=== PATIENT | male | born 1940 | race Caucasian/White ===

== ENCOUNTER 2017-07-01 11:49 | Inpatient (IN) | payer OTHER ==
[~2017-07-01] VITALS: Ht 167.6 cm; Wt 94.3 kg
[~2017-07-01 11:49] MED LIST: KEFLEX500 M1 PO
--- NOTE | 2017-07-01 12:09 | ED INFLUENZA/URI COMPLAINT ---
History of Present Illness General Chief Complaint: Upper Respiratory Sx/Fever Stated Complaint: ?FLU Source: patient Exam Limitations: no limitations Allergies Coded Allergies: No Known Allergies (12/22/15) Triage Note: PT TO ED WITH C/O SOB, COUGH, CONGESTION SINCE CARLA "WORSE THIS WEEK WITH THE COLD WEATHER, CAN'T SLEEP". Triage Nurses Notes Reviewed? yes Onset: Gradual Duration: week(s): Timing: recent history Severity: moderate HPI: 77yo male with hx of COPD, sleep apnea on CPAP at night, a fib on xarelto, DM, CAD s/p cardiac stents presents to ED complaining of dyspnea times one months. Patient states that symptoms began shortly after [place] and he attributed dyspnea to very cold weather. Patient states dyspnea is worse with exertion and associated with hyperventilation. Patient states that over the past 2 days dyspnea has been worsening prompting him to report to the emergency department. Patient states he has had cough intermittently productive of clear/white sputum. Patient has no history of similar dyspnea, he states he has never been admitted to the hospital for COPD. Patient also feeling generalized abdominal discomfort which he attributes to anxiety, he denies abdominal pain. The patient denies fevers, chills, chest pain, syncope. (Cristina HATCH,Philomena Castañeda) Vital Signs & Intake/Output Vital Signs & Intake/Output Vital Signs Date Time Temp Pulse Resp B/P B/P Pulse O2 O2 Flow FiO2 Mean Ox Delivery Rate 07/01 1458 97.9 78 26 179/87 94 Room Air 07/01 1312 97.7 77 16 189/88 94 Nasal 3.0L Cannula 07/01 1227 Room Air 07/01 1158 96.8 90 24 135/79 88 Room Air Room Air Reconcile Medications Furosemide 20 MG TABLET 1 TAB PO DAILY DIURETIC (Reported) Losartan Potassium (Cozaar) 50 MG TABLET 1 TAB PO DAILY BP (Reported) Metformin HCl 500 MG TABLET 1 TAB PO DAILY DM (Reported) Metoprolol Succinate 50 MG TAB.ER.24H 1 TAB PO BID HEART/BP (Reported) Rivaroxaban (Xarelto) 20 MG TABLET 1 TAB PO QPM BLOOD THINNER (Reported) with food Simvastatin (Simvastatin*) 80 MG TABLET 1 TAB PO DAILY CHOLESTEROL (Reported) (Melva CARDONA,Soham Amin) Past History Travel History Traveled to [place] past 21 day No Medical History Any Pertinent Medical History? see below for history Neurological: NONE EENT: NONE Cardiovascular: HYPERTENSION ATRIAL FIBRILLATION CARDIAC STENTS Respiratory: COPD, obstructive sleep apnea Gastrointestinal: NONE Hepatic: NONE Renal: NONE Musculoskeletal: NONE Psychiatric: NONE Endocrine: diabetes Blood Disorders: NONE Cancer(s): prostate cancer HOME PARAPROFESSIONAL/Reproductive: NONE Surgical History Surgical History: non-contributory Psychosocial History What is your primary language Maltese Tobacco Use: Quit >30 days ago ETOH Use: denies use Illicit Drug Use: denies illicit drug use Family History Hx Contributory? No (Philomena Hui) Review of Systems Review of Systems Constitutional: Reports: no symptoms. EENTM: Reports: no symptoms. Respiratory: Reports: see HPI. Cardiovascular: Reports: no symptoms. GI: Reports: see HPI. Genitourinary: Reports: no symptoms. Musculoskeletal: Reports: no symptoms. Skin: Reports: no symptoms. Neurological/Psychological: Reports: no symptoms. Hematologic/Endocrine: Reports: no symptoms. Immunologic/Allergic: Reports: no symptoms. All Other Systems: Reviewed and Negative (Philomena Hui) Physical Exam Physical Exam General Appearance: well developed/nourished, no apparent distress, alert, awake Head: atraumatic, normal appearance Eyes: Bilateral: normal appearance. Ears, Nose, Throat: normal ENT inspection, moist mucous membrane, hearing grossly normal, Tympanic normal Neck: normal inspection, supple, full range of motion Respiratory: normal breath sounds, no respiratory distress, lungs clear, slightly diminished breath sounds bilateral posterior lung daniel Cardiovascular: irregularly irregular Peripheral Pulses: 2+ radial (R), 2+ radial (L) Gastrointestinal: normal bowel sounds, soft, mild distension with mild periumbilical tenderness Back: normal inspection, normal range of motion Extremities: normal inspection, normal range of motion, mild nonpitting pedal edema bilaterally Neurologic/Psych: awake, alert, oriented x 3, normal gait, normal mood/affect Skin: intact, normal color, warm/dry Core Measures Sepsis Present: No Sepsis Focused Exam Completed? No (Philomena Hui) Progress Differential Diagnosis: influenza, pneumonia, CHF, COPD, bronchitis, ACS Plan of Care: Orders Procedure Date/time Status Heart Healthy Diet 07/01 D Active Patient Data 07/01 1519 Active ED Holding Orders 07/01 1517 Active Admit to inpatient 07/01 1517 Active Vital Signs 07/01 1517 Active Code Status 07/01 1517 Active Add-on Test (ER Only) 07/01 1438 Active RAPID VIRAL INFLUENZA A 07/01 1436 Complete B-TYPE NATRIURETIC PEP (BNP) 07/01 1321 Complete TROPONIN LEVEL 07/01 1204 Complete COMPREHENSIVE METABOLIC PANEL 07/01 1204 Complete CBC WITHOUT DIFFERENTIAL 07/01 1204 Complete EKG 07/01 1204 Active Laboratory Tests 07/01/17 1321: Anion Gap 15, Estimated GFR > 60, BUN/Creatinine Ratio 10.0, Glucose 129 H, Calcium 9.1, Total Bilirubin 1.2, AST 22, ALT 37, Alkaline Phosphatase 101, Troponin I < 0.01, Rbg-W-Xyfvguvdfwj Pept 4480 H, Total Protein 7.4, Albumin 4.1, Globulin 3.3, Albumin/Globulin Ratio 1.2, CBC w Diff NO MAN DIFF REQ, RBC 5.11, MCV 88.3, MCH 27.6, RDW 15.7 H, MPV 8.8, Gran % 78.3 H, Lymphocytes % 9.9 L, Monocytes % 9.5 H, Eosinophils % 1.9, Basophils % 0.4, Absolute Granulocytes 6.6 H, Absolute Lymphocytes 0.8 L, Absolute Monocytes 0.8 H, Absolute Eosinophils 0.2, Absolute Basophils 0, PUBS MCHC 31.3 L 07/01/17 1225: Fpv-S-Xpvpnzhwhdy Pept Cancelled Microbiology 07/01 1510 NASOPHARYN: Influenza Virus A & B Rapid Smear - COMP Chest x-ray shows small left-sided pleural effusion which appears new compared to old x-ray studies. Patient's BNP is acutely elevated compared to prior labs. Patient also with hypoxia and dyspnea on exertion without supplemental oxygen. O2 sat 91 while walking without oxygenation and patient symptomatic with dyspnea even during rest. This patient requires IV diuresis, cardiology consult, repeat EKGs and troponins. The patient was discussed with Dr. Frye. Discussed this patient with hospitalist, Dr. Garcia, regarding telemetry admission. Diagnostic Imaging: Viewed by Me: Radiology Read. Discussed w/RAD: Radiology Read. CXR Impression: PATIENT: CLARISSA FERMIN PRESENT AGE: 77 PATIENT ACCOUNT NO: [id number] : 38 LOCATION: [facility] [place] ORDERING PHYSICIAN: Maik HATCH SERVICE DATE: 07/01/17 EXAM TYPE: RAD - XRY-CHEST XRAY, TWO VIEWS EXAMINATION: XR CHEST CLINICAL INFORMATION: Shortness of breath, cough. COMPARISON: Chest done on 06/24/2016. TECHNIQUE: Two views of the chest were obtained. FINDINGS: Interval development of small left-sided pleural effusion and nonspecific left lower lobar airspace disease present which may represent compressive atelectasis, infiltrate or combination thereof. No other significant change since 06/24/2016. IMPRESSION: Small left-sided pleural effusion and nonspecific left lower lobar airspace disease, appears new since . No other significant change. DICTATED BY: Inez Cunningham MD DATE/TIME DICTATED:07/01/171256 MAMMALOGY TEACHER:GUILLERMINA DATE/TIME TRANSCRIBED:1256 CONFIDENTIAL, DO NOT COPY WITHOUT APPROPRIATE AUTHORIZATION. < Electronically signed in Other Vendor System> SIGNED BY: Inez Cunningham MD 07/01/17 1311 Initial ED EKG: atrial fibrillation rate 83, nonspecific ST changes Prior EKG: unchanged (09/01/12) (Philomena Hui) Departure Departure Disposition: STILL A PATIENT Condition: Stable Clinical Impression Primary Impression: CHF exacerbation Qualifiers: Congestive heart failure type: unspecified congestive heart failure type Qualified Code: I50.9 - Heart failure, unspecified Secondary Impressions: Dyspnea Qualifiers: Dyspnea type: dyspnea on exertion Qualified Code: R06.09 - Other forms of dyspnea Pleural effusion Referrals: Micheline Ramos MD (PCP/Family) Departure Forms: Customer Survey General Discharge Information Admission Note Spoke With: Henry Garcia MD Documentation of Exam: Documentation of any treatments & extenuating circumstances including Concerns Regarding Discharge (functional status, medication knowledge or non-compliance, living conditions, etc.) that warrant an admission rather than observation: [ Acute CHF exacerbation requiring IV Lasix, cardiology consult, trend troponins, repeat EKGs, telemetry monitoring, supplemental oxygen, premature discharge would be medically unsafe] (Philomena Hui) PA/WELL FLOW OPERATOR Co-Sign Statement Statement: ED Attending supervision documentation- [X] I saw and evaluated the patient. I have also reviewed all the pertinent lab results and diagnostic results. I agree with the findings and the plan of care as documented in the PA's/WELL FLOW OPERATOR's documentation. [X] I have reviewed the ED Record and agree with the PA's/WELL FLOW OPERATOR's documentation. [] Additions or exceptions (if any) to the PAs/WELL FLOW OPERATOR's note and plan are summarized below: [Patient is having increasing shortness of breath, dyspnea on exertion and orthopnea. Productive cough with white sputum. Patient to be admitted for fluid overload very patient will need IV diuresis. Cardiology consultation.] (Melva CARDONA,Soham Amin) [X] I saw and evaluated the patient. I have also reviewed all the pertinent lab results and diagnostic results. I agree with the findings and the plan of care as documented in the PA's/WELL FLOW OPERATOR's documentation. [X] I have reviewed the ED Record and agree with the PA's/WELL FLOW OPERATOR's documentation. [] Additions or exceptions (if any) to the PAs/WELL FLOW OPERATOR's note and plan are summarized below: [Patient is having increasing shortness of breath, dyspnea on exertion and orthopnea. Productive cough with white sputum. Patient to be admitted for fluid overload very patient will need IV diuresis. Cardiology consultation.] (Melva CARDONA,Soham Amin)
--- NOTE | 2017-07-01 13:11 | RADIOLOGY REPORT ---
EXAMINATION: XR CHEST CLINICAL INFORMATION: Shortness of breath, cough. COMPARISON: Chest done on 06/24/2016. TECHNIQUE: Two views of the chest were obtained. FINDINGS: Interval development of small left-sided pleural effusion and nonspecific left lower lobar airspace disease present which may represent compressive atelectasis, infiltrate or combination thereof. No other significant change since 06/24/2016. IMPRESSION: Small left-sided pleural effusion and nonspecific left lower lobar airspace disease, appears new since 06/24/2016. No other significant change.
[2017-07-01 13:33] LABS: ABSOLUTE BASOPHIL COUNT 0 /CUMM (0.0-0.2); ABSOLUTE EOSINOPHIL COUNT 0.2 /CUMM (0.0-0.7); ABSOLUTE GRANULOCYTE CT 6.6 /CUMM (1.4-6.5); ABSOLUTE LYMPH COUNT 0.8 /CUMM (1.2-3.4); ABSOLUTE MONOCYTE COUNT 0.8 /CUMM (0.10-0.60); BASOPHIL % 0.4 % (0.0-2.0); EOSINOPHIL % 1.9 % (0-5); GRANULOCYTE % 78.3 % (42.2-75.2); HEMATOCRIT 45.1 % (42-52); MEAN CORPUSCULAR HGB 27.6 PG (27.0-31.0); MEAN CORPUSCULAR HGB CONC 31.3 G/DL (33.0-37.0); MEAN CORPUSCULAR VOLUME 88.3 FL (80.0-94.0); MEAN PLATELET VOLUME 8.8 FL (7.4-10.4); PLATELET COUNT 223 /CUMM (130-400); RBC DISTRIBUTION WIDTH 15.7 % (11.5-14.5); RED BLOOD CELL CT 5.11 /CUMM (4.70-6.10); WHITE BLOOD CELL COUNT 8.4 /CUMM (4.8-10.8)
[2017-07-01] MEDS ORDERED: METFORMIN HCL500 M3 PO (14:40)
[2017-07-01] MEDS ORDERED: SIMVASTATIN80 M1 PO (14:40)
[2017-07-01] MEDS ORDERED: FUROSEMIDE20 M1 PO (14:41)
[2017-07-01] MEDS ORDERED: METOPROLOL SUCC50 M2 PO (14:41)
[2017-07-01] MEDS ORDERED: XARELTO20 M2 PO (14:54)
[2017-07-01] MEDS ORDERED: COZAAR50 M1 PO (14:54)
--- NOTE | 2017-07-01 15:34 | History & Physical ---
Bill CARDONA,[facility] 07/01/17 1534: General Information and HPI History of Present Illness: Mr. Davis is a 77-year-old male with past medical history of atrial fibrillation on rivaroxaban followed by Dr. Lyle, hypertension, coronary artery disease status post stents 10 years ago, COPD followed by Dr. Huerta, LUCY with CPAP, diabetes mellitus, and prostate cancer who presents with shortness of breath. His symptoms started 2 weeks ago when he first noticed that his breathing was not as good. He also reports he had nasal congestion, fatigue, and chills. The shortness of breath was worse on exertion. This progressed and today he decided to come in because it was bothering him when he was sleeping and he was tired of it. He says the breathing is worse when lying down though he sleeps on one pillow. He also reports waking up no overnight shortness of breath. He reports increased salt intake recently. He has no sore throat, cough, myalgia, arthralgia, weight gain, leg edema, fever, night sweats, sick contacts, recent travel, or chest pain. He is a former smoker and denies alcohol or drug use. Allergies/Medications Allergies: Coded Allergies: No Known Allergies (12/22/15) Home Med list Furosemide 20 MG TABLET 1 TAB PO DAILY DIURETIC (Reported) Losartan Potassium (Cozaar) 50 MG TABLET 1 TAB PO DAILY BP (Reported) Metformin HCl 500 MG TABLET 1 TAB PO DAILY DM (Reported) Metoprolol Succinate 50 MG TAB.ER.24H 1 TAB PO BID HEART/BP (Reported) Rivaroxaban (Xarelto) 20 MG TABLET 1 TAB PO QPM BLOOD THINNER (Reported) with food Simvastatin (Simvastatin*) 80 MG TABLET 1 TAB PO DAILY CHOLESTEROL (Reported) Past History Travel History Traveled to [place] past 21 day No Medical History Neurological: NONE EENT: NONE Cardiovascular: HYPERTENSION ATRIAL FIBRILLATION CARDIAC STENTS Respiratory: COPD, obstructive sleep apnea Gastrointestinal: NONE Hepatic: NONE Renal: NONE Musculoskeletal: NONE Psychiatric: NONE Endocrine: diabetes Blood Disorders: NONE Cancer(s): prostate cancer CARGO STATION WORKER/Reproductive: NONE Surgical History Surgical History: non-contributory Past Family/Social History Psychosocial History Smoking Status: Former Smoker ETOH Use: denies use Illicit Drug Use: denies illicit drug use Review of Systems Review of Systems Constitutional: Reports: see HPI. EENTM: Reports: no symptoms. Cardiovascular: Reports: see HPI. Respiratory: Reports: see HPI. GI: Reports: no symptoms. Genitourinary: Reports: no symptoms. Musculoskeletal: Reports: no symptoms. Skin: Reports: no symptoms. Neurological/Psychological: Reports: no symptoms. Hematologic/Endocrine: Reports: no symptoms. Immunologic/Allergic: Reports: no symptoms. All Other Systems: Reviewed and Negative Exam & Diagnostic Data Last 24 Hrs of Vital Signs/I&O Vital Signs Date Time Temp Pulse Resp B/P B/P Pulse O2 O2 Flow FiO2 Mean Ox Delivery Rate 07/01 1458 97.9 78 26 179/87 94 Room Air 07/01 1312 97.7 77 16 189/88 94 Nasal 3.0L Cannula 07/01 1227 Room Air 07/01 1158 96.8 90 24 135/79 88 Room Air Room Air Intake & Output 07/01 1600 07/01 0800 07/01 0000 Intake Total Output Total Balance Patient 235 lb Weight Weight Reported by Patient Measurement Method Physical Exam General Appearance Alert, Oriented X3, Cooperative, No Acute Distress Skin No Rashes, No Breakdown, No Significant Lesion Sepsis Skin Exam (color): Normal for Ethnicity HEENT Atraumatic, PERRLA, EOMI, Mucous Membr. moist/pink Neck No JVD Cardiovascular irregualr Lungs mild wheezing Abdomen Normal Bowel Sounds, No Tenderness, distended Neurological Normal Speech, Strength at 5/5 X4 Ext, Normal Tone, Sensation Intact Extremities trace edema Last 24 Hrs of Labs/Reji: Laboratory Tests 07/01/17 1321: Anion Gap 15, Estimated GFR > 60, BUN/Creatinine Ratio 10.0, Glucose 129 H, Calcium 9.1, Total Bilirubin 1.2, AST 22, ALT 37, Alkaline Phosphatase 101, Troponin I < 0.01, Xiw-L-Mqfgowbnbch Pept 4480 H, Total Protein 7.4, Albumin 4.1, Globulin 3.3, Albumin/Globulin Ratio 1.2, CBC w Diff NO MAN DIFF REQ, RBC 5.11, MCV 88.3, MCH 27.6, RDW 15.7 H, MPV 8.8, Gran % 78.3 H, Lymphocytes % 9.9 L, Monocytes % 9.5 H, Eosinophils % 1.9, Basophils % 0.4, Absolute Granulocytes 6.6 H, Absolute Lymphocytes 0.8 L, Absolute Monocytes 0.8 H, Absolute Eosinophils 0.2, Absolute Basophils 0, PUBS MCHC 31.3 L 07/01/17 1225: Thq-D-Jbjonsafebc Pept Cancelled Microbiology 07/01 1510 NASOPHARYN: Influenza Virus A & B Rapid Smear - COMP Assessment/Plan Assessment: Mr. Davis is a 77-year-old male with past medical history of atrial fibrillation on rivaroxaban followed by Dr. Lyle, hypertension, coronary artery disease status post stents 10 years ago, COPD followed by Dr. Huerta, LUCY with CPAP, diabetes mellitus, and prostate cancer who presents with shortness of breath. On presentation, vital signs were T 96.8, HR 90, RR 24, BP 135/79, saturating 88 % on room air. Laboratories were significant for white blood cell count 8.4, 78.3% granulocytes, hemoglobin 14.1, normal BEP, negative LFTs, troponins less than 0.01, and BNP 4480. Chest x-ray showed a small left-sided pleural effusion and nonspecific left lower lobar airspace disease. He was treated with furosemide 40 mg IV in the emergency room. He will be admitted to telemetry and treated for the following problems: 1. Dyspnea 2. Left-sided pleural effusion 3. Acute hypoxic respiratory failure 4. Hypernatremia #Dyspnea: Patient has a history of COPD, coronary artery disease, and atrial fibrillation. His dyspnea may be related to a COPD exacerbation versus decompensated heart failure versus upper respiratory infection. He does have a pleural effusion on x-ray and perhaps some increased pulmonary vascular congestion. He does not have JVD, significant extremity edema, or crackles on exam. BNP is elevated but this is nonspecific. Well's score 0 and he is on anticoagulation. -Pulmonology consult -Cardiology consult -TTE -EKG and troponins 2 -TRC nebs -Daily weights, I's and O's -ABG -CT chest without contrast #Hypernatremia: Mild and asymptomatic. -Continue to monitor #Chronic medical problems: -Continue home meds DVT prophylaxis with rivaroxaban Heart healthy diet Full code As Ranked By This Provider Problem List: 1. Pleural effusion Core Measures/Misc (02/26) Acute Coronary Syndrome ACS Diagnosis: No Congestive Heart Failure Congestive Heart Failure Diagnosis No Cerebrovascular Accident CVA/TIA Diagnosis: No VTE (View Protocol) VTE Risk Factors Age>40 No Mechanical VTE [facility]TE Pharm Prophylaxis d/t NA PharmProphylax ordered Sepsis (View protocol) Sepsis Present: No Henry Garcia 07/01/17 1713: Attending MD Review Statement Attending Statement Attending MD Statement: examined this patient, discuss w/resident/PA/BRAKE HOLDER, agreed w/resident/PA/BRAKE HOLDER, discussed with family, reviewed EMR data (avail), discussed with nursing, discussed with case mgmt, reviewed images, amended to note Attending Assessment/Plan: Mr. Davis is a 77-year-old male with past medical history of atrial fibrillation on rivaroxaban followed by Dr. Lyle, hypertension, coronary artery disease status post stents 10 years ago, COPD, LUCY with CPAP, diabetes mellitus, and prostate cancer comes with dyspnea on exertion with elevated probnp 4000 and chest xray with left sided pleural effusion and left sided airspace disease. Patient admit to telemetry monitoring for possible CHF exacerbation and COPD exacerbation r/o pneumonia. Obtain serial cardiac enzymes, iv lasix, iv steroids , iv abx ECHO as per guadalupe liang, cardiology consult. CT chest to evalaute for pleural effusion and airspace disease. Obtain previuos records. gi/dvt prophylaxis full code. Luisito CARDONA,[facility] 07/01/17 1720: Resident Review Statement Resident Statement: examined this patient, discussed with corporate development intern, agreed with corporate development intern, discussed with family Other Findings: Mr. Davis is a 77 year old male with past medical history significant for atrial fibrillation status post ablation on xerelto, DM type II on metformin, CAD s/p remote cardiac stents, remote right carotid stent, COPD not on home oxygen, sleep apnea on CPAP at night, who presented to ED with chief complaint of shortness of breath for 2 weeks. Patient reported progressive shortness of breath with orthopnea and paroxysmal nocturnal dyspnea over the last 2 days not relieved by nebulizers, Robitussin with codeine syrup. Problem list #Acute hypoxic respiratory failure #COPD exacerbation with wheeze on physical exam #CHF exacerbation with elevated proBNP 4480 #Diabetes mellitus #Atrial fibrillation on Xarelto #Hypertension/hyperlipidemia #LUCY on CPAP Plan -Admit to telemetry floor -Lasix 40 mg daily IV -Solu-Medrol 40 mg twice a day -Azithromycin IV 500 mg daily -Strict in ins and outs -[facility] -We'll obtain chest CT to rule out consultation and evaluate left pleural effusion -Cardiology and pulmonary consultation -Risk for PE is very low, wells criteria 0 -Accu-Chek and NovoLog sliding scale 3 times a day before meals -Continue Xarelto -Continue home medication metoprolol, losartan and statin -Code full -DVT prophylaxis Xarelto and Alps -Diet DCC with Na restriction
--- NOTE | 2017-07-01 18:56 | CT SCAN REPORT ---
EXAMINATION: CT CHEST WITHOUT CONTRAST CLINICAL INFORMATION: Left lower lobar pneumonia and left-sided pleural effusion. COMPARISON: Chest radiograph done earlier today. TECHNIQUE: Multidetector volumetric CT imaging of the chest was done. Axial MIP volume rendering provided. Sagittal and coronal reformatted images were obtained. DLP: 543.45 mGy-cm FINDINGS: SOLUTIONS DEVELOPMENT ANALYST: Small left-sided pleural effusion and nonspecific left lower lobar airspace disease is noted, similar to prior chest radiograph done earlier today. LUNGS: Concordant with chest radiograph done earlier today, partial loss of volume and nonspecific airspace disease is noted at left lower lobe of the lung, most consistent with a combination of compressive atelectasis and left lower lobar pneumonia. Extensive emphysematous changes are noted throughout both lung daniel. The remainder of the lung daniel otherwise appear clear. The tracheobronchial tree appeared patent. MEDIASTINUM: Extensive atherosclerotic disease including coronary arterial calcifications are present. There is cardiomegaly present in the form of enlargement of all 4 cardiac chambers. There are no pathologically enlarged mediastinal and/or hilar lymphadenopathy present. PLEURA: There is a small left-sided pleural effusion present extending between the base to the apex of the left hemithorax. AXILLA: No lymphadenopathy. UPPER ABDOMEN: A few scattered hepatic hypodensities are noted along the subdiaphragmatic surface of the liver, too small for accurate characterization. Another additional sub-5 mm hypodensity is also noted along the subcapsular surface of the posterior and inferior part of the right lobe of the liver, too small for accurate characterization. Multiple bilateral cortical hypodensities are noted within the visualized included part of the kidneys (left greater than right), likely represent cortical renal cyst. There is no adrenal mass present. OSSEOUS STRUCTURES: No suspicious lytic or sclerotic abnormalities. IMPRESSION: 1. Concordant with chest radiograph done earlier today, there are CT evidence of small left-sided pleural effusion and partial collapsed consolidation of left lower lobe of the lung noted. 2. Extensive emphysematous disease. 3. Extensive atherosclerotic disease including coronary arterial calcifications. 4. Cardiomegaly involving all 4 chambers. 5. A few hepatic hypodensities are noted, too small for accurate characterization. Bilateral cortical hypodensities are also noted within the kidneys, likely represent cortical renal cysts.
[2017-07-01 22:56] VITALS: BP 120/98
[2017-07-02 07:00] VITALS: BP 150/98
[2017-07-02 08:25] LABS: ABSOLUTE BASOPHIL COUNT 0 /CUMM (0.0-0.2); ABSOLUTE EOSINOPHIL COUNT 0 /CUMM (0.0-0.7); ABSOLUTE GRANULOCYTE CT 4.7 /CUMM (1.4-6.5); ABSOLUTE LYMPH COUNT 0.6 /CUMM (1.2-3.4); ABSOLUTE MONOCYTE COUNT 0.1 /CUMM (0.10-0.60); BASOPHIL % 0 % (0.0-2.0); EOSINOPHIL % 0.1 % (0-5); HEMATOCRIT 42.6 % (42-52); MEAN CORPUSCULAR HGB 28.3 PG (27.0-31.0); MEAN CORPUSCULAR HGB CONC 32.4 G/DL (33.0-37.0); MEAN CORPUSCULAR VOLUME 87.3 FL (80.0-94.0); MEAN PLATELET VOLUME 9.2 FL (7.4-10.4); PLATELET COUNT 202 /CUMM (130-400); RBC DISTRIBUTION WIDTH 15.8 % (11.5-14.5); RED BLOOD CELL CT 4.88 /CUMM (4.70-6.10); WHITE BLOOD CELL COUNT 5.3 /CUMM (4.8-10.8)
[2017-07-02 08:50] LABS: GRANULOCYTE % 87.5 % (42.2-75.2)
--- NOTE | 2017-07-02 08:52 | PN- Housestaff ---
Radha Fernandez MD,[facility] 07/02/17 0852: Subjective Follow-up For: 1. Dyspnea 2. Left-sided pleural effusion 3. Acute hypoxic respiratory failure 4. Hypernatremia Tele-Events Since Last Visit: A flutter 80-91 Judy, cecelia Subjective: Patient visited today, was lying in bed comfortably in no acute distress, was alert and oriented. reported improved symptoms including COB, No fever or chills, no shortness of breathing, reported occasinal cough, no sputum, no chest pain, no other events. Review of Systems Constitutional: Reports: see HPI. Objective Last 24 Hrs of Vital Signs/I&O Vital Signs Date Time Temp Pulse Resp B/P B/P Pulse O2 O2 Flow FiO2 Mean Ox Delivery Rate 07/02 1636 97 128/72 07/02 1400 97.7 67 22 164/80 91 Room Air 07/02 1022 91 146/96 07/02 0854 87 150/98 07/02 0800 98 Nasal 2.0L Cannula 07/02 0700 97.9 71 22 150/98 95 07/02 0126 96 Nasal 3.0L Cannula 07/02 0000 Nasal 3.0L Cannula 07/01 2256 97.2 77 24 120/98 97 Room Air 07/01 2143 87 140/90 07/01 1928 Room Air 07/01 1856 Room Air Room Air Intake & Output 07/02 1600 07/02 0800 07/02 0000 Intake Total 520 40 370 Output Total 164 448 4993 Balance -230 -260 -630 Intake, IV 20 250 Intake, Oral 500 40 120 Output, Urine 596 636 9084 Patient 215 lb 235 lb Weight Weight Bed scale Measurement Method Physical Exam General Appearance: Alert, Oriented X3, Cooperative, No Acute Distress Skin: No Significant Lesion Skin Temp/Moisture Exam: Warm/Dry Sepsis Skin Exam (color): Normal for Ethnicity HEENT: Atraumatic, EOMI, Mucous Membr. moist/pink Cardiovascular: Normal S1, Normal S2, irreg -- reg Lungs: Clear to Auscultation Abdomen: Soft, No Tenderness Extremities: No Edema Current Medications: Current Medications Sig/Dimitris Start time Last Medication Dose Route Stop Time Status Admin Acetaminophen 650 MG Q6P PRN 07/01 1715 AC PO Albuterol Sulfate 3 ML Q4-PRN PRN 07/01 1900 AC INH Atorvastatin Calcium 80 MG 1700 07/02 1700 AC 07/02 PO 1627 Azithromycin 500 MG 2200 07/01 2200 AC 07/01 Dextrose/Water 250 ML IV 2141 Azithromycin 500 MG DAILY@1800 07/01 1800 DC Sodium Chloride 250 ML IV Docusate Sodium 100 MG DAILY PRN 07/02 1030 AC 07/02 PO 1021 Furosemide 40 MG DAILY 07/02 1000 AC 07/02 IV 0854 Insulin Aspart 0 TIDAC 07/02 0800 AC 07/02 SC 1249 Losartan Potassium 50 MG DAILY 07/02 1000 AC 07/02 PO 0854 Methylprednisolone 40 MG Q12 07/01 2200 AC 07/02 IV 0854 Metoprolol Succinate 50 MG BID 07/01 220 AC 07/02 PO 1022 Metoprolol Tartrate 50 MG .STK-MED ONE 07/02 0849 DC PO 07/02 0850 Pantoprazole Sodium 40 MG DAILY 07/010 AC 07/02 IV 0854 Rivaroxaban 20 MG DAILY 07/02 1000 AC 07/02 PO 0854 Last 24 Hrs of Lab/Reji Results Last 24 Hrs of Labs/Mics: Laboratory Tests 07/02/17 1405: D-Dimer High Sensitivty 762 H 07/02/17 0615: Anion Gap 18 H, Estimated GFR > 60, BUN/Creatinine Ratio 13.8, CBC w Diff NO MAN DIFF REQ, RBC 4.88, MCV 87.3, MCH 28.3, RDW 15.8 H, MPV 9.2, Gran % 87.5 H , Lymphocytes % 11.1 L, Monocytes % 1.3 L, Eosinophils % 0.1, Basophils % 0, Absolute Granulocytes 4.7, Absolute Lymphocytes 0.6 L, Absolute Monocytes 0.1, Absolute Eosinophils 0, Absolute Basophils 0, PUBS MCHC 32.4 L 07/01/17 1945: Troponin I 0.01 Assessment/Plan Assessment: Mr. Davis is a 77-year-old male with past medical history of atrial fibrillation on rivaroxaban followed by Dr. Lyle, hypertension, coronary artery disease status post stents 10 years ago, COPD followed by Dr. Huerta, LUCY with CPAP, diabetes mellitus, and prostate cancer who presents with shortness of breath. On presentation, vital signs were T 96.8, HR 90, RR 24, BP 135/79, saturating 88 % on room air. Laboratories were significant for white blood cell count 8.4, 78.3% granulocytes, hemoglobin 14.1, normal BEP, negative LFTs, troponins less than 0.01, and BNP 4480. Chest x-ray showed a small left-sided pleural effusion and nonspecific left lower lobar airspace disease. He was treated with furosemide 40 mg IV in the emergency room. He will be admitted to telemetry and treated for the following problems: 1. Dyspnea 2. Left-sided pleural effusion 3. Acute hypoxic respiratory failure 4. Hypernatremia #Dyspnea: multifact, CHF and COPD exacerbation Patient has a history of COPD, coronary artery disease, and atrial fibrillation. His dyspnea may be related to a COPD exacerbation versus decompensated heart failure versus upper respiratory infection. He does have a pleural effusion on x-ray and perhaps some increased pulmonary vascular congestion. He does not have JVD, significant extremity edema, or crackles on exam. BNP is elevated but this is nonspecific. Well's score 0 and he is on anticoagulation. Chest CT: 1. Concordant with chest radiograph done earlier today, there are CT evidence of small left-sided pleural effusion and partial collapsed consolidation of left lower lobe of the lung noted. 2. Extensive emphysematous disease. 3. Extensive atherosclerotic disease including coronary arterial calcifications. 4. Cardiomegaly involving all 4 chambers. 5. A few hepatic hypodensities are noted, too small for accurate characterization. Bilateral cortical hypodensities are also noted within the kidneys, likely represent cortical renal cysts. -Pulmonology consult -Cardiology consult -Follow TTE -TRC nebs -Daily weights, I's and O's -repeat CXR in am - continue IV lasix - continue Ab and steroids #Hypernatremia: Mild and asymptomatic. -Continue to monitor #Chronic medical problems: - Continue medication DVT prophylaxis with rivaroxaban Heart healthy diet Full code Problem List: 1. Dyspnea 2. CHF exacerbation Pain Ratin Pain Location: none at the time of interview Pain Goal: Pain 4 or less Pain Plan: Continue current plan Tomorrow's Labs & Rationales: CBC BEP Henry Garcia 07/02/17 1255: Attending Review Statement Attending Statement Attending MD Statement: examined this patient, discuss w/resident/PA/SENIOR MARKETING ASSOCIATE, agreed w/resident/PA/SENIOR MARKETING ASSOCIATE, discussed with family, reviewed EMR data (avail), discussed with nursing, discussed with case mgmt, reviewed images, amended to note Attending Assessment/Plan: Mr. Davis is a 77-year-old male with past medical history of atrial fibrillation on rivaroxaban followed by Dr. Lyle, hypertension, coronary artery disease status post stents 10 years ago, COPD, LUCY with CPAP, diabetes mellitus, and prostate cancer comes with dyspnea on exertion with elevated probnp 4000 and chest xray with left sided pleural effusion and left sided airspace disease. CT chest with enlarged heart and left sided pleural effusion with collapse of left lung likely atelectasis. No fevers, No wbc. Patient admit to telemetry monitoring for possible CHF exacerbation and COPD exacerbation. Negative serial cardiac enzymes, iv lasix 40 daily, Taper steroids , iv azithromycin. ECHO as per cards f/u, guadalupe, cardiology consulted. Monitor I/o, Daily weights. Obtain previous records. gi/dvt prophylaxis full code.
--- NOTE | 2017-07-02 13:25 | Cons- Cardiology ---
General Information and HPI Consulting Request Date of Consult: 07/02/17 Requested By: Henry Garcia MD Reason for Consult: Shortness of breath. Source of Information: patient, old records Exam Limitations: poor historian History of Present Illness: Mr. Myles Davis is a 77-year-old male with a history of former tobacco use, COPD, LUCY with CPAP, prostate carcinoma, hypertension, dyslipidemia , diabetes mellitus, vascular disease (s/p CEA ~1994; s/p ? endostent AAA), atrial fibrillation on factor X a inhibitor Xarelto (rivaroxaban), and coronary artery disease (s/p coronary stenting ~1999) who presented with a two-week history of progressive exertional shortness of breath, orthopnea, paroxysmal nocturnal dyspnea, etc. In addition, he also admitted to some associated exertional chest "heaviness" during the very cold weather we recently experienced. He denies any recent weight gain, lower extremity edema, or palpitations. He also denies any recent fever, chills, cough, etc. Allergies/Medications Allergies: Coded Allergies: No Known Allergies (12/22/15) Home Med List: Furosemide 20 MG TABLET 1 TAB PO DAILY DIURETIC (Reported) Losartan Potassium (Cozaar) 50 MG TABLET 1 TAB PO DAILY BP (Reported) Metformin HCl 500 MG TABLET 1 TAB PO DAILY DM (Reported) Metoprolol Succinate 50 MG TAB.ER.24H 1 TAB PO BID HEART/BP (Reported) Rivaroxaban (Xarelto) 20 MG TABLET 1 TAB PO QPM BLOOD THINNER (Reported) with food Simvastatin (Simvastatin*) 80 MG TABLET 1 TAB PO DAILY CHOLESTEROL (Reported) Review of Systems Review of Systems: A 14 point system review was obtained was noncontributory, other than as above. Past History Travel History Traveled to [place] past 21 day No Medical History Neurological: NONE EENT: NONE Cardiovascular: HYPERTENSION ATRIAL FIBRILLATION CARDIAC STENTS Respiratory: COPD, obstructive sleep apnea Gastrointestinal: NONE Hepatic: NONE Renal: NONE Musculoskeletal: NONE Psychiatric: NONE Endocrine: diabetes Blood Disorders: NONE Cancer(s): prostate cancer DIAMOND BLENDER/Reproductive: NONE Surgical History Surgical History: non-contributory Psychosocial History Smoking Status: Former Smoker ETOH Use: denies use Illicit Drug Use: denies illicit drug use Exam & Diagnostic Data Vital Signs and I&O Vital Signs Date Time Temp Pulse Resp B/P B/P Pulse O2 O2 Flow FiO2 Mean Ox Delivery Rate 07/02 1022 91 146/96 07/02 0854 87 150/98 07/02 0800 98 Nasal 2.0L Cannula 07/02 0700 97.9 71 22 150/98 95 07/02 0126 96 Nasal 3.0L Cannula 07/02 0000 Nasal 3.0L Cannula 07/01 2256 97.2 77 24 120/98 97 Room Air 07/01 2143 87 140/90 07/01 1928 Room Air 07/01 1856 Room Air Room Air 07/01 1825 98.9 105 16 135/76 97 Room Air 07/01 1735 98.2 77 20 183/92 92 Room Air 07/01 1458 97.9 78 26 179/87 94 Room Air 07/01 1312 97.7 77 16 189/88 94 Nasal 3.0L Cannula Intake & Output 07/02 1600 07/02 0800 07/02 0000 07/01 1600 07/01 0800 07/01 0000 Intake Total 40 370 Output Total 300 1000 Balance -260 -630 Intake, IV 250 Intake, Oral 40 120 Output, Urine 300 1000 Patient 215 lb 235 lb 235 lb Weight Weight Bed scale Reported by Patient Measurement Method Physical Exam: Well-developed, obese elderly male in no acute distress with nasal oxygen in place. Vital signs: See above. HEENT: Normocephalic, atraumatic, EOMI, moist mucous membranes. Neck: Right CEA scar. No JVD, no bruits. Lungs: Decreased breath sounds bilaterally. Heart: S1, S2 with grade 1/6 systolic murmur. PMI not well felt. No gallop or rub. Abdomen: Soft, nontender, positive bowel sounds. Extremities: No edema. Labs/Reji Results: Laboratory Tests 07/02 07/01 07/01 0615 1945 1720 Blood Gas pH (7.35 - 7.45 PH) 7.48 H pCO2 (35 - 45 TORR) 28 L pO2 (80 - 100 TORR) 62 L HCO3 (21 - 28 MEQ/L) 21 ABG O2 Sat (Measured) (>96.0 %) 90.0 L Carboxyhemoglobin (1.5 - 5.0 %) 2.1 O2 Concentration % RA O2 Delivery Method RA Chemistry Sodium (137 - 145 mmol/L) 147 H Potassium (3.5 - 5.1 mmol/L) 4.1 Chloride (98 - 107 mmol/L) 106 Carbon Dioxide (22 - 30 mmol/L) 23 Anion Gap (5 - 16) 18 H BUN (9 - 20 mg/dL) 11 Creatinine (0.7 - 1.2 mg/dL) 0.8 Estimated GFR (>60 ml/min) > 60 BUN/Creatinine Ratio (7 - 25 %) 13.8 Troponin I (<0.11 ng/ml) 0.01 Hematology CBC w Diff NO MAN DIFF REQ WBC (4.8 - 10.8 /CUMM) 5.3 RBC (4.70 - 6.10 /CUMM) 4.88 Hgb (14.0 - 18.0 G/DL) 13.8 L Hct (42 - 52 %) 42.6 MCV (80.0 - 94.0 FL) 87.3 MCH (27.0 - 31.0 PG) 28.3 RDW (11.5 - 14.5 %) 15.8 H Plt Count (130 - 400 /CUMM) 202 MPV (7.4 - 10.4 FL) 9.2 Gran % (42.2 - 75.2 %) 87.5 H Lymphocytes % (20.5 - 51.1 %) 11.1 L Monocytes % (1.7 - 9.3 %) 1.3 L Eosinophils % (0 - 5 %) 0.1 Basophils % (0.0 - 2.0 %) 0 Absolute Granulocytes (1.4 - 6.5 /CUMM) 4.7 Absolute Lymphocytes (1.2 - 3.4 /CUMM) 0.6 L Absolute Monocytes (0.10 - 0.60 /CUMM) 0.1 Absolute Eosinophils (0.0 - 0.7 /CUMM) 0 Absolute Basophils (0.0 - 0.2 /CUMM) 0 PUBS MCHC (33.0 - 37.0 G/DL) 32.4 L Miscellaneous Phlebotomy Draw Site LEFT RADIAL 07/01 07/01 1321 1225 Chemistry Sodium (137 - 145 mmol/L) 147 H Potassium (3.5 - 5.1 mmol/L) 4.5 Chloride (98 - 107 mmol/L) 105 Carbon Dioxide (22 - 30 mmol/L) 26 Anion Gap (5 - 16) 15 BUN (9 - 20 mg/dL) 9 Creatinine (0.7 - 1.2 mg/dL) 0.9 Estimated GFR (>60 ml/min) > 60 BUN/Creatinine Ratio (7 - 25 %) 10.0 Glucose (65 - 99 mg/dL) 129 H Calcium (8.4 - 10.2 mg/dL) 9.1 Total Bilirubin (0.2 - 1.3 mg/dL) 1.2 AST (17 - 59 U/L) 22 ALT (21 - 72 U/L) 37 Alkaline Phosphatase (< 127 U/L) 101 Troponin I (<0.11 ng/ml) < 0.01 [id number] Pept (<125 pg/mL) 4480 H Cancelled Total Protein (6.3 - 8.2 g/dL) 7.4 Albumin (3.5 - 5.0 g/dL) 4.1 Globulin (1.9 - 4.2 gm/dL) 3.3 Albumin/Globulin Ratio (1.1 - 2.2 %) 1.2 Hematology CBC w Diff NO MAN DIFF REQ WBC (4.8 - 10.8 /CUMM) 8.4 RBC (4.70 - 6.10 /CUMM) 5.11 Hgb (14.0 - 18.0 G/DL) 14.1 Hct (42 - 52 %) 45.1 MCV (80.0 - 94.0 FL) 88.3 MCH (27.0 - 31.0 PG) 27.6 RDW (11.5 - 14.5 %) 15.7 H Plt Count (130 - 400 /CUMM) 223 MPV (7.4 - 10.4 FL) 8.8 Gran % (42.2 - 75.2 %) 78.3 H Lymphocytes % (20.5 - 51.1 %) 9.9 L Monocytes % (1.7 - 9.3 %) 9.5 H Eosinophils % (0 - 5 %) 1.9 Basophils % (0.0 - 2.0 %) 0.4 Absolute Granulocytes (1.4 - 6.5 /CUMM) 6.6 H Absolute Lymphocytes (1.2 - 3.4 /CUMM) 0.8 L Absolute Monocytes (0.10 - 0.60 /CUMM) 0.8 H Absolute Eosinophils (0.0 - 0.7 /CUMM) 0.2 Absolute Basophils (0.0 - 0.2 /CUMM) 0 PUBS MCHC (33.0 - 37.0 G/DL) 31.3 L Diagnostic Data EKG Results 07/01/2017: Soft atrial fibrillation with a normal mean ventricular response, multiple PVCs, IVCD, poor R-wave progression leads V1-V3. More ectopy when compared to previous tracing. CXR Results 07/01/2017: Small left-sided pleural effusion and nonspecific left lower lobar airspace disease, appears new since 06/24/2016. No other significant change. Other Results Chest CT 07/01/2017: 1. Concordant with chest radiograph done earlier today, there are CT evidence of small left-sided pleural effusion and partial collapsed consolidation of left lower lobe of the lung noted. 2. Extensive emphysematous disease. 3. Extensive atherosclerotic disease including coronary arterial calcifications. 4. Cardiomegaly involving all 4 chambers. 5. A few hepatic hypodensities are noted, too small for accurate characterization. Bilateral cortical hypodensities are also noted within the kidneys, likely represent cortical renal cysts. Assessment/Plan Assessment/Plan [id number] w/ hx fmr tob use, COPD, LUCY w/ CPAP, prostate ca, HTN, HLD, DM, vasc dz (s/p CEA; ? endostent AAA), AF on rivaroxaban, & CAD (s/p stenting ~1999) who presented 07/01/2017 w/ a 2 wk hx of progressive exertional SOB, orthopnea, PND, etc., as well as, associated exertional chest discomfort w/ small L-sided pleural effusion and partial collapsed consolidation of LLL of the lung noted, elevated NT PRO-BNP, normal WBC count w/ L shift, etc. Suspect his presentation is secondary to an acute exacerbation of COPD and a component of HF and at this juncture would treat both conditions. He received empiric antimicrobial therapy, as well as, IV furosemide 40 mg in the ED and is feeling improved. Recommendations: * Admit to telemetry, follow-up troponins, follow-up electrocardiograms. * Continue IV furosemide 40 mg daily and reassess the need for further IV diuresis in the a.m. * Repeat CXR in a.m. * Continue antimicrobial therapy, steroids, etc. as per hospitalist. * Hold his outpatient by mouth furosemide, but continue his anticoagulation, angiotensin receptor jose, beta jose, statin, etc. * Echocardiogram to assess his left ventricular function, degree of LVH, RV function, PA pressure, etc. * Although not as likely, include a pulmonary embolism in the differential diagnosis for his presentation. * DVT prophylaxis being addressed by the anticoagulation for his atrial fibrillation. Further recommendations will follow, Thank you. Consult Acknowledgment - Thank you for your consult request.
[2017-07-02 14:00] VITALS: BP 164/80
[2017-07-02 16:36] VITALS: BP 128/72
--- NOTE | 2017-07-02 20:53 | CT SCAN REPORT ---
EXAMINATION: CT ANGIOGRAM CHEST CLINICAL INFORMATION: Shortness of breath. COMPARISON: CT chest 07/01/2017. TECHNIQUE: A noncontrast localizer was performed. Following the administration of 70 mL Optiray 350 intravenous contrast material, axial multidetector volumetric images of the chest were obtained in the pulmonary arterial phase of enhancement. Coronal and sagittal reformatted and multiplanar MIP images of the chest were completed at the CT scanner and reviewed on the PACS workstation. DLP: 571.61 mGy-cm FINDINGS: PULMONARY ARTERIES: Bolus is adequate. No pulmonary artery embolism within the main, central, or segmental pulmonary arteries. LUNGS: There are severe emphysematous changes of lungs. Respiratory motion artifact limits evaluation for subtle pulmonary nodules. There is mild left lower lobe atelectasis owing to a moderate size left pleural effusion. MEDIASTINUM: No mediastinal or hilar adenopathy. No pericardial effusion. Atherosclerotic changes of the thoracic aorta. No septal bowing. The right atrium is mildly enlarged with some reflux of contrast into the hepatic veins. PLEURA: Moderate-sized left pleural effusion which appears homogenous. No suspicious features or abnormal postcontrast enhancement. AXILLA: No lymphadenopathy. OSSEOUS STRUCTURES: General changes the partially visualized spine. No acute osseous findings. UPPER ABDOMEN: Multiple tiny hypodensities in the right and left hepatic lobes which are unchanged and most likely represents small cysts. These are unfortunately too small to accurately characterize. The remainder of the partially visualized abdomen is unremarkable. Small lateral renal cysts, partially visualized. IMPRESSION: No evidence of pulmonary embolism. Right atrial enlargement with reflux of contrast in the hepatic veins. This suggests elevated right heart pressures and is likely chronic. Unchanged moderate left pleural effusion with left basilar atelectasis. Superimposed pneumonia is not excluded. Chronic findings, as above. VTE: Negative
[2017-07-02 23:08] VITALS: BP 170/88
[2017-07-03 06:01] VITALS: BP 162/100
--- NOTE | 2017-07-03 07:13 | PN- Housestaff ---
See Addendum Subjective Follow-up For: COPD/CHF Tele-Events Since Last Visit: 9 beat VT, 70-90 Subjective: Patient had multiple episodes of NSVT, including a 9-beat run. He did not experience any CP or palpitations. He says his breathing has improved since admission. Complaining of some lower back pain that comes and goes, thinks it srelated to his recliner at home. Review of Systems Constitutional: Reports: no symptoms. EENTM: Reports: no symptoms. Cardiovascular: Reports: no symptoms. Respiratory: Reports: no symptoms. Gastrointestinal: Reports: no symptoms. Genitourinary: Reports: no symptoms. Musculoskeletal: Reports: see HPI. Skin: Reports: no symptoms. Neurological/Psychological: Reports: no symptoms. Hematologic/Endocrine: Reports: no symptoms. Immunologic/Allergic: Reports: no symptoms. Objective Last 24 Hrs of Vital Signs/I&O Vital Signs Date Time Temp Pulse Resp B/P B/P Pulse O2 O2 Flow FiO2 Mean Ox Delivery Rate 07/03 0601 98.2 90 18 162/100 98 Nasal 3.0L Cannula 07/03 0000 97 Nasal 3.0L Cannula 07/02 2308 96.9 96 24 170/88 97 Nasal 2.0L Cannula 07/02 2127 85 170/88 07/02 1636 97 128/72 07/02 1400 97.7 67 22 164/80 91 Room Air 07/02 1022 91 146/96 07/02 0854 87 150/98 07/02 0800 98 Nasal 2.0L Cannula Intake & Output 07/03 0800 07/03 0000 07/02 1600 Intake Total 250 250 520 Output Total 200 200 750 Balance 50 50 -230 Intake, IV 250 20 Intake, Oral 250 500 Output, Urine 200 200 750 Patient 215 lb Weight Weight Bed scale Measurement Method Physical Exam General Appearance: Alert, Oriented X3, Cooperative, No Acute Distress HEENT: Atraumatic Cardiovascular: irregular Lungs: mild wheezing Abdomen: Normal Bowel Sounds, Soft, No Tenderness Extremities: No Edema, Normal Pulses, No Tenderness/Swelling Current Medications: Current Medications Sig/Dimitris Start time Last Medication Dose Route Stop Time Status Admin Acetaminophen 650 MG Q6P PRN 07/01 1715 AC PO Albuterol Sulfate 3 ML Q4-PRN PRN 07/01 1900 AC INH Atorvastatin Calcium 80 MG 1700 07/02 1700 AC 07/02 PO 1627 Azithromycin 500 MG 2200 07/01 2200 AC 07/02 Dextrose/Water 250 ML IV 2126 Docusate Sodium 100 MG DAILY PRN 07/02 1030 AC 07/02 PO 1021 Furosemide 40 MG DAILY 07/02 1000 AC 07/02 IV 0854 Insulin Aspart 0 TIDAC 07/02 0800 AC 07/02 SC 1856 Losartan Potassium 50 MG DAILY 07/02 1000 AC 07/02 PO 0854 Methylprednisolone 40 MG Q24 07/03 1000 AC IV Methylprednisolone 40 MG Q12 07/01 2200 DC 07/02 IV 0854 Metoprolol Succinate 50 MG BID 07/01 2200 AC 07/02 PO 2127 Metoprolol Tartrate 50 MG .STK-MED ONE 07/02 0849 DC PO 07/02 0850 Pantoprazole Sodium 40 MG DAILY 07/01 2200 AC 07/02 IV 0854 Rivaroxaban 20 MG DAILY 07/02 1000 AC 07/02 PO 0854 Last 24 Hrs of Lab/Reji Results Last 24 Hrs of Labs/Mics: Laboratory Tests 07/03/17 0615: Sodium Pending, Potassium Pending, Chloride Pending, Carbon Dioxide Pending, Anion Gap Pending, BUN Pending, Creatinine Pending, BUN/Creatinine Ratio Pending , Phosphorus Pending, Magnesium Pending, CBC w Diff Pending, WBC Pending, RBC Pending, Hgb Pending, Hct Pending, MCV Pending, MCH Pending, RDW Pending, Plt Count Pending, MPV Pending, PUBS MCHC Pending 07/02/17 1405: D-Dimer High Sensitivty 762 H Assessment/Plan Assessment: Mr. Davis is a 77-year-old male with past medical history of atrial fibrillation on rivaroxaban followed by Dr. Lyle, hypertension, coronary artery disease status post stents 10 years ago, COPD followed by Dr. Huerta, LUCY with CPAP, diabetes mellitus, and prostate cancer who presents with shortness of breath. On presentation, vital signs were T 96.8, HR 90, RR 24, BP 135/79, saturating 88 % on room air. Laboratories were significant for white blood cell count 8.4, 78.3% granulocytes, hemoglobin 14.1, normal BEP, negative LFTs, troponins less than 0.01, and BNP 4480. Chest x-ray showed a small left-sided pleural effusion and nonspecific left lower lobar airspace disease. He was treated with furosemide 40 mg IV in the emergency room. He will be admitted to telemetry and treated for the following problems: 1. COPD/CHF 2. Left-sided pleural effusion 3. Acute hypoxic respiratory failure 4. Hypernatremia 5. Nonsustained ventricular tachycardia #COPD/CHF: Patient has a history of COPD, coronary artery disease, and atrial fibrillation. His dyspnea may be related to a COPD exacerbation versus decompensated heart failure versus upper respiratory infection. He does have a pleural effusion on x-ray and perhaps some increased pulmonary vascular congestion. He does not have JVD, significant extremity edema, or crackles on exam. BNP is elevated but this is nonspecific. Well's score 0 and he is on anticoagulation. EKG and troponins 2 negative. Initial ABG showed respiratory alkalosis. TTE revealed EF 60% and severe left atrial enlargement and moderate to severe pulmonary hypertension. He is negative for [address] shows small left -sided pleural effusion, partial collapse consolidation of the left lower lobe, and extensive emphysematous disease. CTA revealed no evidence of PE, right atrial enlargement read with reflux of contrast in the hepatic veins is adjusting elevated right heart pressures that are likely chronic, and in moderate left-sided pleural effusion with left basilar atelectasis. He does feel that his breathing is improving. -Appreciate cardiology recommendations -Appreciate pulmonology recommendations -[facility] nebs -Daily weights, I's and O's -Furosemide 40 mg IV daily -Methylprednisolone 40 mg IV daily -Azithromycin -CPAP #Nonsustained ventricular tachycardia: Patient has had several episodes of NSVT including a 9 beat run. He was a symptomatically controlled these. Electrolyte has been followed and are normal. -Continue to monitor -Appreciate cardiology recommendations #Hypernatremia: Mild and asymptomatic. -Continue to monitor #Chronic medical problems: -Continue home atorvastatin, docusate, rivaroxaban, losartan, omeprazole, metoprolol DVT prophylaxis with rivaroxaban Heart healthy diet Full code Problem List: 1. CHF exacerbation Pain Ratin Pain Location: no Pain Goal: Remain pain free Pain Plan: see a/p Tomorrow's Labs & Rationales: bep, cbc
--- NOTE | 2017-07-03 07:25 | ECHOCARDIOGRAM REPORT ---
CLARISSA FERMIN Age: 77 : 1940 Gender: M Exam Date: 07/02/2017 10:32 Exam Location: [address] Ht (in): 66 Wt (lb): 235 BSA: 2.28 BP: 150 / 98 Ordering Physician: Ajit Khan MD Referring Physician: Eleazar Lyle MD, PhD Technologist: Lorenza Kaba [facility] Room Number: 175 Indications: SHORTNESS OF BREATH Rhythm: Atrial fibrillation Technical Quality: good FINDINGS Left Ventricle Normal left ventricular size with mild left ventricular hypertrophy. Normal systolic function with no obvious regional wall motion abnormalities. The ejection fraction is visually estimated at 60%. Right Ventricle The right ventricle is normal in size and function. Right Atrium The right atrium is moderately enlarged. Left Atrium The left atrium is markedly enlarged. The interatrial septum is intact. Mitral Valve The mitral valve is normal in structure and function. There is mild mitral regurgitation. Aortic Valve Mildly thickenedl aortic valve without significant sclerosis or stenosis. There is no aortic regurgitation. Tricuspid Valve The tricuspid valve is normal in structure and function. There is mild tricuspid regurgitation. Pulmonary artery systolic pressure is moderate to severely elevated to 64mmHg. Pulmonic Valve Structurally normal pulmonic valve. There is mild pulmonic regurgitation. Pericardium Normal pericardium with trace effusion. Left pleural effusion. Great Vessels Normal aortic root dimension. The aortic arch and great vessels are well seen and are normal. CONCLUSIONS 1. Normal EF of 60%. 2. Mild left ventricular hypertrophy. 3. Moderate right atrial and severe left atrial enlargement. 4. Mild mitral regurgitation. 5. Mild tricuspid regurgitation. 6. Mild pulmonic regurgitation. 7. Moderate to severe pulmonary hypertension. 8. Pleural effusion noted. Trace pericardial effusion. Eleazar Lyle M.D. (Electronically Signed) Final Date: 03 July 2017 07:24 MEASUREMENTS (Male / Female) Normal Values 2D ECHO LV Diastolic Diameter PLAX 4.4 cm 4.2 - 5.9 / 3.9 - 5.3 cm LV Systolic Diameter PLAX 3.5 cm 2.1 - 4.0 cm LV Fractional Shortening PLAX 20.5 % 25 - 46 % LV Ejection Fraction 2D Teich 42.0 % IVS Diastolic Thickness 1.4 cm LVPW Diastolic Thickness 1.4 cm LV Relative Wall Thickness 0.6 RV Internal Dim ED PLAX 3.5 cm 1.9 - 3.8 cm LVOT Diameter 2.2 cm Aortic Root Diameter 3.4 cm LA Systolic Diameter LX 5.3 cm 3.0 - 4.0 / 2.7 - 3.8 cm LA Volume 95.0 cm 18 - 58 / 22 - 52 cm Ascending Aorta Diameter 3.6 cm DOPPLER AV Peak Velocity 128.0 cm/s AV Peak Gradient 6.6 mmHg AV Mean Velocity 80.7 cm/s AV Mean Gradient 3.0 mmHg AV Velocity Time Integral 23.0 cm LVOT Peak Velocity 79.9 cm/s LVOT Peak Gradient 2.6 mmHg LVOT Mean Velocity 51.9 cm/s LVOT Mean Gradient 1.0 mmHg LVOT Velocity Time Integral 14.2 cm LVOT Stroke Volume 54.0 cm AV Area Cont Eq vti 2.3 cm AV Area Cont Eq pk 2.4 cm MV Peak Velocity 113.0 cm/s MV Peak Gradient 5.1 mmHg MV Mean Velocity 54.7 cm/s MV Mean Gradient 2.0 mmHg Mitral E Point Velocity 116.0 cm/s MV PHT Velocity 121.0 cm/s MV Deceleration Louisa 525.0 cm/s MV Pressure Half Time 69.1 ms MV Area PHT 3.2 cm MV Deceleration Time 164.0 ms TR Peak Velocity 368.0 cm/s TR Peak Gradient 54.2 mmHg Right Atrial Pressure 10.0 mmHg Pulmonary Artery Systolic Pressu 64.2 mmHg Right Ventricular Systolic Press 64.2 mmHg PV Peak Velocity 116.0 cm/s PV Peak Gradient 5.4 mmHg PV Mean Velocity 67.9 cm/s PV Mean Gradient 2.0 mmHg PV Velocity Time Integral 20.1 cm LV E' Lateral Velocity 7.9 cm/s Mitral E to LV E' Lateral Ratio 14.7 LV E' Septal Velocity 7.5 cm/s Mitral E to LV E' Septal Ratio 15.6
[2017-07-03 08:24] LABS: ABSOLUTE BASOPHIL COUNT 0 /CUMM (0.0-0.2); ABSOLUTE EOSINOPHIL COUNT 0 /CUMM (0.0-0.7); ABSOLUTE GRANULOCYTE CT 10.4 /CUMM (1.4-6.5); ABSOLUTE LYMPH COUNT 0.9 /CUMM (1.2-3.4); ABSOLUTE MONOCYTE COUNT 0.9 /CUMM (0.10-0.60); BASOPHIL % 0 % (0.0-2.0); EOSINOPHIL % 0 % (0-5); GRANULOCYTE % 85.1 % (42.2-75.2); HEMATOCRIT 41.5 % (42-52); MEAN CORPUSCULAR HGB 28.4 PG (27.0-31.0); MEAN CORPUSCULAR HGB CONC 32.4 G/DL (33.0-37.0); MEAN CORPUSCULAR VOLUME 87.6 FL (80.0-94.0); MEAN PLATELET VOLUME 9.3 FL (7.4-10.4); PLATELET COUNT 188 /CUMM (130-400); RBC DISTRIBUTION WIDTH 15.6 % (11.5-14.5); RED BLOOD CELL CT 4.73 /CUMM (4.70-6.10)
[2017-07-03 09:21] LABS: WHITE BLOOD CELL COUNT 12.2 /CUMM (4.8-10.8)
--- NOTE | 2017-07-03 10:15 | RADIOLOGY REPORT ---
EXAMINATION: CR CHEST CLINICAL INFORMATION: Shortness of breath. Cough. COMPARISON: Chest x-ray dated 07/01/2017 and older exams. CTA of the chest dated 07/02/2017. TECHNIQUE: AP and lateral views of the chest were obtained. FINDINGS: The cardiomediastinal silhouette is enlarged, unchanged. Calcification, ectasia and tortuosity of the aorta again noted. There is continued opacification in the left mid and lower chest, unchanged when compared to the prior exam. The right lung is fully expanded. Mild central vascular congestion and thickening of the central airways is noted. Minimal biapical pleural-based thickening and reticulation are seen, consistent with scarring. No pneumothorax is seen. Moderate degenerative changes as seen in the thoracic spine. IMPRESSION: No interval change in moderate size left-sided pleural effusion and associated left basilar volume loss and atelectasis or consolidation. Findings are similar to the recent prior exams.
--- NOTE | 2017-07-03 11:34 | PN- Student ---
Subjective Subjective: FOLLOW UP FOR: COPD/CHF Tele-Events Since Last Visit: 9 beat VT,70-90 Subjective: Patient has had multiple Nonsustained SVT,including a 9 beat run last night.Patient did not experience any chest pain,chest tightness or palpitations.Patient did bring up that he sometimes experiences back pain/back spasm that occurs occasionally but attributes that to his recliner at home and sleeping position.Reports he slept well with the bed elevated and one pillow. Review of Systems Constitutional: Reports: no symptoms. EENTM: Reports: no symptoms. Cardiovascular: Reports: no symptoms. Respiratory: Reports: no symptoms. Gastrointestinal: Reports: no symptoms. Genitourinary: Reports: no symptoms. Musculoskeletal: Reports: see HPI. Skin: Reports: no symptoms. Neurological/Psychological: Reports: no symptoms. Hematologic/Endocrine: Reports: no symptoms. Immunologic/Allergic: Reports: no symptoms. Objective Objective: Vital Signs Date Time Temp Pulse Resp B/P B/P Pulse O2 O2 Flow FiO2 Mean Ox Delivery Rate 07/03 1041 75 146/82 07/03 1041 75 146/82 07/03 0601 98.2 90 18 162/100 98 Nasal 3.0L Cannula 07/03 0000 97 Nasal 3.0L Cannula Intake & Output 07/03 1600 07/03 0800 07/03 0000 Intake Total 250 250 Output Total 200 200 Balance 50 50 Intake, IV 250 Intake, Oral 250 Output, Urine 200 200 Physical Exam General Appearance: Alert, Oriented X3, Cooperative, No Acute Distress HEENT: Atraumatic Cardiovascular: irregular Lungs: clear to ascultation Abdomen: Obese,Normal Bowel Sounds in all 4 quadrants, Soft, Non tender Extremities: No Edema, Normal Pulses, No Tenderness/Swelling Current Medications Sig/Dimitris Start time Last Medication Dose Route Stop Time Status Admin Acetaminophen 650 MG Q6P PRN 07/01 1715 AC PO Albuterol Sulfate 3 ML Q4-PRN PRN 07/01 1900 AC INH Atorvastatin Calcium 80 [place] [address]007/02 1700 AC 07/02 PO 1627 Azithromycin 250 MG DAILY 07/03 1019 AC PO Azithromycin 500 MG 07/01 2200 DC 07/02 Dextrose/Water 250 ML IV 2126 Docusate Sodium 100 MG DAILY PRN 07/02 1030 AC 07/02 PO 1021 Furosemide 40 MG DAILY 07/02 1000 AC 07/03 IV 1042 Insulin Aspart 0 TIDAC 07/02 0800 AC 07/02 SC 1856 Losartan Potassium 50 MG DAILY 07/02 1000 AC 07/03 PO 1041 Methylprednisolone 40 MG Q24 07/03 1000 AC 07/03 IV 1043 Methylprednisolone 40 MG Q12 07/010 DC 07/02 IV 0854 Metoprolol Succinate 50 MG BID 07/01 220 AC 07/03 PO 1041 Omeprazole 40 MG DAILY AC 07/03 0816 AC 07/03 PO 1041 Pantoprazole Sodium 40 MG DAILY 07/01 2199 DC 07/02 IV 0854 Rivaroxaban 20 MG DAILY 07/02 1000 AC 07/03 PO 1041 Results Results: Laboratory Tests 07/03/17 0615: Anion Gap 17 H, Estimated GFR > 60, BUN/Creatinine Ratio 17.0, Phosphorus 4.2, Magnesium 2.2, CBC w Diff NO MAN DIFF REQ, RBC 4.73, MCV 87.6, MCH 28.4, RDW 15.6 H, MPV 9.3, Gran % 85.1 H, Lymphocytes % 7.3 L, Monocytes % 7.6, Eosinophils % 0, Basophils % 0, Absolute Granulocytes 10.4 H, Absolute Lymphocytes 0.9 L, Absolute Monocytes 0.9 H, Absolute Eosinophils 0, Absolute Basophils 0, PUBS MCHC 32.4 L 07/02/17 1405: D-Dimer High Sensitivty 762 H 07/02/17 0615: Anion Gap 18 H, Estimated GFR > 60, BUN/Creatinine Ratio 13.8, CBC w Diff NO MAN DIFF REQ, RBC 4.88, MCV 87.3, MCH 28.3, RDW 15.8 H, MPV 9.2, Gran % 87.5 H , Lymphocytes % 11.1 L, Monocytes % 1.3 L, Eosinophils % 0.1, Basophils % 0, Absolute Granulocytes 4.7, Absolute Lymphocytes 0.6 L, Absolute Monocytes 0.1, Absolute Eosinophils 0, Absolute Basophils 0, PUBS MCHC 32.4 L 07/01/17 1945: Troponin I 0.01 07/01/17 1720: pH 7.48 H, pCO2 28 L, pO2 62 L, HCO3 21, ABG O2 Sat (Measured) 90.0 L, Carboxyhemoglobin 2.1, O2 Concentration % RA, O2 Delivery Method RA, Phlebotomy Draw Site LEFT RADIAL 07/01/17 1321: Anion Gap 15, Estimated GFR > 60, BUN/Creatinine Ratio 10.0, Glucose 129 H, Calcium 9.1, Total Bilirubin 1.2, AST 22, ALT 37, Alkaline Phosphatase 101, Troponin I < 0.01, Hpm-K-Tcmcliebnvr Pept 4480 H, Total Protein 7.4, Albumin 4.1, Globulin 3.3, Albumin/Globulin Ratio 1.2, CBC w Diff NO MAN DIFF REQ, RBC 5.11, MCV 88.3, MCH 27.6, RDW 15.7 H, MPV 8.8, Gran % 78.3 H, Lymphocytes % 9.9 L, Monocytes % 9.5 H, Eosinophils % 1.9, Basophils % 0.4, Absolute Granulocytes 6.6 H, Absolute Lymphocytes 0.8 L, Absolute Monocytes 0.8 H, Absolute Eosinophils 0.2, Absolute Basophils 0, PUBS MCHC 31.3 L 07/01/17 1225: Tti-O-Cwfbwsaiyzy Pept Cancelled Microbiology 07/01 1510 NASOPHARYN: Influenza Virus A & B Rapid Smear - COMP 07/01 ECHO: CONCLUSIONS 1. Normal EF of 60%. 2. Mild left ventricular hypertrophy. 3. Moderate right atrial and severe left atrial enlargement. 4. Mild mitral regurgitation. 5. Mild tricuspid regurgitation. 6. Mild pulmonic regurgitation. 7. Moderate to severe pulmonary hypertension. 8. Pleural effusion noted. Trace pericardial effusion. 07/02 CT Angiogram chest IMPRESSION: No evidence of pulmonary embolism. Right atrial enlargement with reflux of contrast in the hepatic veins. This suggests elevated right heart pressures and is likely chronic. Unchanged moderate left pleural effusion with left basilar atelectasis. Superimposed pneumonia is not excluded. Chronic findings, as above. VTE: Negative 07/[address] No interval change in moderate size left-sided pleural effusion and associated left basilar volume loss and atelectasis or consolidation. Findings are similar to the recent prior exams Assessment/Plan Assessment: Myles Davis is a 77-year-old male with past medical history of atrial fibrillation on rivaroxaban followed by Dr. Lyle, hypertension, coronary artery disease status post stents 10 years ago, COPD followed by Dr. Huerta, LUCY with CPAP, diabetes mellitus, and prostate cancer who presents with shortness of breath.Admitted to telemetry and treated for the followin)Dyspnea 2)Left sided pleural effusion 3)Nonsustained Ventricular Tachycardia Plan: Dyspnea: Patient has a history of COPD,CAD and Afibb.His dyspnea may be related to a COPD exacerbation versus decompensated heart failure versus upper respiratory infection given his symptoms.On CXray small left pleural effusions were noted w/ increased vascular congestion.There was no JVD,crackles,or lower extremity edema on physical exam.BNP was found to be elevated.Chest CT showed evidence of cardiomeagaly.He is currently on anticoagulation. EKG and troponins 2 negative. Initial ABG showed respiratory alkalosis. TTE revealed EF 60% and severe left atrial enlargement and moderate to severe pulmonary hypertension.CTA revealed no evidence of PE.Patient is currently on 3L O2 and feels as though his breathing is improving. -Appreciate cardiology recommendations -Appreciate pulmonology recommendations -TRC nebs -Daily weights, I's and O's -Furosemide 40 mg IV daily -Methylprednisolone 40 mg IV daily -Azithromycin -CPAP Nonsustained ventricular tachycardia: Patient has had several episodes of NSVT including a 9 beat run last night.Electrolyte has been followed and are normal. -Continue to monitor -Appreciate cardiology recommendations Left sided pleural effusuion: Pleural effusion was noted to be small so no interventions presently. -appreciate pulmonary reccomendations -contiune to observe. Chronic medical problems: -Continue home meds DVT prophylaxis with rivaroxaban Heart healthy diet Full Code
[2017-07-03 15:00] VITALS: BP 146/80
--- NOTE | 2017-07-03 19:18 | PN- Cardiology ---
Subjective Subjective: Feels as though his breathing has improved, but is "not 100%". Objective Vital Signs and I&Os Vital Signs Date Time Temp Pulse Resp B/P B/P Pulse O2 O2 Flow FiO2 Mean Ox Delivery Rate 07/03 1600 93 Nasal 2.0L Cannula 07/03 1500 97.4 75 20 146/80 96 07/03 1142 94 Nasal 3.0L Cannula 07/03 1041 75 146/82 07/03 1041 75 146/82 07/03 0800 93 Nasal 3.0L Cannula 07/03 0601 98.2 90 18 162/100 98 Nasal 3.0L Cannula 07/03 0000 97 Nasal 3.0L Cannula 07/02 2308 96.9 96 24 170/88 97 Nasal 2.0L Cannula 07/02 2127 85 170/88 Intake & Output 07/03 1600 07/03 0800 07/03 0000 07/02 1600 07/02 0800 07/02 0000 Intake Total 250 250 520 40 370 Output Total 600 500 200 884 726 7232 Balance -600 -250 50 -230 -260 -630 Intake, IV 250 20 250 Intake, Oral 250 500 40 120 Output, Urine 600 500 200 004 016 [id number] Patient 215 lb 235 lb Weight Weight Bed scale Measurement Method Physical Exam: Well-developed, obese elderly male in no acute distress with nasal oxygen in place. Vital signs: See above. HEENT: Normocephalic, atraumatic, EOMI, moist mucous membranes. Neck: Right CEA scar. No JVD, no bruits. Lungs: Decreased breath sounds bilaterally. Heart: S1, S2 with grade 1/6 systolic murmur. PMI not well felt. No gallop or rub. Abdomen: Soft, nontender, positive bowel sounds. Extremities: No edema. Current Medications: Current Medications Sig/Dimitris Start time Last Medication Dose Route Stop Time Status Admin Acetaminophen 650 MG Q6P PRN 07/01 1715 AC PO Albuterol Sulfate 3 ML Q4-PRN PRN 07/01 1900 AC INH Atorvastatin Calcium 80 [place] 17007/02 1700 AC 07/03 PO 1715 Azithromycin 250 MG DAILY 07/03 1019 AC 07/03 PO 1232 Azithromycin 500 MG 2200 07/01 2200 DC 07/02 Dextrose/Water 250 ML IV 2126 Cinacalcet 30 MG DAILY 07/03 1345 CAN PO Docusate Sodium 100 MG DAILY PRN 07/02 1030 AC 07/02 PO 1021 Furosemide 40 MG DAILY 07/02 1000 AC 07/03 IV 1042 Insulin Aspart 0 TIDAC 07/02 0800 AC 07/03 SC 1719 Losartan Potassium 50 MG DAILY 07/02 1000 AC 07/03 PO 1041 Methylprednisolone 40 MG Q24 07/03 1000 AC 07/03 IV 1043 Metoprolol Succinate 50 MG BID 07/01 2200 AC 07/03 PO 1041 Omeprazole 40 MG DAILY AC 07/03 0816 AC 07/03 PO 1041 Pantoprazole Sodium 40 MG DAILY 07/01 2200 DC 07/02 IV 0854 Polyethylene Glycol 17 GM DAILY 07/03 1345 AC 07/03 PO 1715 Rivaroxaban 20 MG DAILY 07/02 1000 AC 07/03 PO 1041 Results Last 48 Hrs of Labs/Mics: Laboratory Tests 07/03/17 0615: Anion Gap 17 H, Estimated GFR > 60, BUN/Creatinine Ratio 17.0, Phosphorus 4.2, Magnesium 2.2, CBC w Diff NO MAN DIFF REQ, RBC 4.73, MCV 87.6, MCH 28.4, RDW 15.6 H, MPV 9.3, Gran % 85.1 H, Lymphocytes % 7.3 L, Monocytes % 7.6, Eosinophils % 0, Basophils % 0, Absolute Granulocytes 10.4 H, Absolute Lymphocytes 0.9 L, Absolute Monocytes 0.9 H, Absolute Eosinophils 0, Absolute Basophils 0, PUBS MCHC 32.4 L 07/02/17 1405: D-Dimer High Sensitivty 762 H 07/02/17 0615: Anion Gap 18 H, Estimated GFR > 60, BUN/Creatinine Ratio 13.8, CBC w Diff NO MAN DIFF REQ, RBC 4.88, MCV 87.3, MCH 28.3, RDW 15.8 H, MPV 9.2, Gran % 87.5 H , Lymphocytes % 11.1 L, Monocytes % 1.3 L, Eosinophils % 0.1, Basophils % 0, Absolute Granulocytes 4.7, Absolute Lymphocytes 0.6 L, Absolute Monocytes 0.1, Absolute Eosinophils 0, Absolute Basophils 0, PUBS MCHC 32.4 L 07/01/17 1945: Troponin I 0.01 Recent Imaging Studies: CXR 07/03/2017 : No interval change in moderate size left-sided pleural effusion and associated left basilar volume loss and atelectasis or consolidation. Findings are similar to the recent prior exams. Assessment/Plan Assessment/Plan [id number] w/ hx fmr tob use, COPD, LUCY w/ CPAP, prostate ca, HTN, HLD, DM, vasc dz (s/p CEA; ? endostent AAA), AF on NOAC, & CAD (s/p stent ~2000) who presented 07/01/2017 w/ a 2 wk hx of progressive exertional SOB, orthopnea, PND, etc., as well as, associated exertional chest discomfort w/ small L-sided pleural effusion and partial collapsed consolidation of LLL of the lung noted, elevated NT PRO-BNP, normal WBC count w/ L shift, etc. Suspect his presentation is 2/2 an AECOPD & a component of HF and would continue to treat both conditions. He received empiric antimicrobial therapy, as well as, IV furosemide 40 mg in the ED and is feeling improved. Recommendations: * Admit to telemetry, follow-up troponins, follow-up electrocardiograms. * Continue IV furosemide 40 mg daily and reassess the need for further IV diuresis in the a.m. * Repeat CXR in a.m. * Continue antimicrobial therapy, steroids, etc. as per hospitalist. Continue telemetry? Yes
[2017-07-03 21:24] VITALS: BP 144/82
[2017-07-04 05:55] VITALS: BP 154/86
--- NOTE | 2017-07-04 07:08 | PN- Housestaff ---
See Addendum Subjective Follow-up For: COPD/CHF Tele-Events Since Last Visit: Lots of NSVT, 70-80 afib otherwise Subjective: No overnight events. He denies feeling any palpitations, CP, or further SOB. Doesn't use oxygen at home. Feels much better than when he came in. Review of Systems Constitutional: Reports: no symptoms. EENTM: Reports: no symptoms. Cardiovascular: Reports: no symptoms. Respiratory: Reports: see HPI. Gastrointestinal: Reports: no symptoms. Genitourinary: Reports: no symptoms. Musculoskeletal: Reports: no symptoms. Skin: Reports: no symptoms. Neurological/Psychological: Reports: no symptoms. Hematologic/Endocrine: Reports: no symptoms. Immunologic/Allergic: Reports: no symptoms. Objective Last 24 Hrs of Vital Signs/I&O Vital Signs Date Time Temp Pulse Resp B/P B/P Pulse O2 O2 Flow FiO2 Mean Ox Delivery Rate 07/04 0555 97.1 81 18 154/86 97 CPAP 2.0L 07/04 0036 88 98 07/03 2254 58 97 07/03 2250 97 Nasal 3.0L Cannula 07/03 2124 97.7 73 18 144/82 95 Nasal 2.0L Cannula 07/03 2109 95 Nasal 2.0L Cannula 07/03 2108 73 144/82 07/03 1600 93 Nasal 2.0L Cannula 07/03 1500 97.4 75 20 146/80 96 07/03 1142 94 Nasal 3.0L Cannula 07/03 1041 75 146/82 07/03 1041 75 146/82 07/03 0800 93 Nasal 3.0L Cannula Intake & Output 07/04 0800 07/04 0000 07/03 1600 Intake Total Output Total 900 Balance -900 Output, Urine 900 Physical Exam General Appearance: Alert, Oriented X3, Cooperative, No Acute Distress Cardiovascular: irregular Lungs: Clear to Auscultation, Normal Air Movement Abdomen: Normal Bowel Sounds, Soft, No Tenderness Extremities: No Edema Current Medications: Current Medications Sig/Dimitris Start time Last Medication Dose Route Stop Time Status Admin Acetaminophen 650 MG Q6P PRN 07/01 1715 AC PO Albuterol Sulfate 3 ML Q4-PRN PRN 07/01 1900 AC INH Atorvastatin Calcium 80 MG 1700 07/02 1700 AC 07/03 PO 1715 Azithromycin 250 MG DAILY 07/03 1019 AC 07/03 PO 1232 Azithromycin 500 MG 0 07/01 2200 DC 07/02 Dextrose/Water 250 ML IV 2126 Cinacalcet 30 MG DAILY 07/03 1345 CAN PO Docusate Sodium 100 MG DAILY PRN 07/02 1030 AC 07/02 PO 1021 Furosemide 40 MG DAILY 07/02 1000 AC 07/03 IV 1042 Insulin Aspart 0 TIDAC 07/02 0800 AC 07/03 SC 1719 Losartan Potassium 50 MG DAILY 07/02 1000 AC 07/03 PO 1041 Methylprednisolone 40 MG Q24 07/03 1000 AC 07/03 IV 1043 Metoprolol Succinate 50 MG BID 07/01 2200 AC 07/03 PO 2108 Omeprazole 40 MG DAILY AC 07/03 0816 AC 07/04 PO 0546 Pantoprazole Sodium 40 MG DAILY 07/01 2200 DC 07/02 IV 0854 Polyethylene Glycol 17 GM DAILY 07/03 1345 AC 07/03 PO 1715 Rivaroxaban 20 MG DAILY 07/02 1000 AC 07/03 PO 1041 Last 24 Hrs of Lab/Reji Results Last 24 Hrs of Labs/Mics: Laboratory Tests 07/04/17 0632: Sodium Pending, Potassium Pending, Chloride Pending, Carbon Dioxide Pending, Anion Gap Pending, BUN Pending, Creatinine Pending, BUN/Creatinine Ratio Pending , CBC w Diff Pending, WBC Pending, RBC Pending, Hgb Pending, Hct Pending, MCV Pending, MCH Pending, RDW Pending, Plt Count Pending, MPV Pending, PUBS MCHC Pending Assessment/Plan Assessment: Mr. Davis is a 77-year-old male with past medical history of atrial fibrillation on rivaroxaban followed by Dr. Lyle, hypertension, coronary artery disease status post stents 10 years ago, COPD followed by Dr. Huerta, LUCY with CPAP, diabetes mellitus, severe pulmonary hypertension, and prostate cancer who presents with shortness of breath. Problem List: 1. COPD/CHF 2. Left-sided pleural effusion 3. Acute hypoxic respiratory failure 4. Hypernatremia 5. Nonsustained ventricular tachycardia #COPD/CHF: Patient has a history of COPD, coronary artery disease, and atrial fibrillation. His dyspnea may be related to a COPD exacerbation versus decompensated heart failure versus upper respiratory infection. He does have a pleural effusion on x-ray and perhaps some increased pulmonary vascular congestion. He does not have JVD, significant extremity edema, or crackles on exam. BNP is elevated but this is nonspecific. Well's score 0 and he is on anticoagulation. EKG and troponins 2 negative. Initial ABG showed respiratory alkalosis. TTE revealed EF 60% and severe left atrial enlargement and moderate to severe pulmonary hypertension. He is negative for [address] shows small left -sided pleural effusion, partial collapse consolidation of the left lower lobe, and extensive emphysematous disease. CTA revealed no evidence of PE, right atrial enlargement read with reflux of contrast in the hepatic veins is adjusting elevated right heart pressures that are likely chronic, and in moderate left-sided pleural effusion with left basilar atelectasis. He does feel that his breathing is improved. -Appreciate cardiology recommendations -Appreciate pulmonology recommendations -TRC nebs -Daily weights, I's and O's -Furosemide 40 mg IV daily. Consider switching to PO. -Pred taper per pulm -CPAP #Nonsustained ventricular tachycardia: Patient has had many episodes of NSVT including a 11 beat run. He was asymptomatic. Electrolytes have been followed and are normal. -Continue to monitor -Appreciate cardiology recommendations #Hypernatremia: Resolved. -Continue to monitor #Chronic medical problems: -Continue home atorvastatin, docusate, rivaroxaban, losartan, omeprazole, metoprolol DVT prophylaxis with rivaroxaban Heart healthy diet Full code Problem List: 1. CHF exacerbation Pain Ratin Pain Location: none Pain Goal: Remain pain free Pain Plan: see a/p Tomorrow's Labs & Rationales: cbc, bep
--- NOTE | 2017-07-04 07:32 | PN- Student ---
Subjective Subjective: Follow Up For: COPD/CHF Tele Events: NSVT - 4-11 beat runs Afibb- 80 Subjective: No overnight events.Patient slept with CPAP last night.Reports that he slept confortably throughout the night w.o. waking up at any time.Denies Chest pain, Shortness of Breath,Palipitations.He also says he has no pain and feels that his breathing has improved since admission.Patient is alert,sitting upright comfortably on room air. Review of Systems Constitutional: Reports: no symptoms. EENTM: Reports: no symptoms. Cardiovascular: Reports: no symptoms. Respiratory: Reports: no symptoms. Gastrointestinal: Reports: no symptoms. Genitourinary: Reports: no symptoms. Musculoskeletal: Reports: no symptoms Skin: Reports: no symptoms. Neurological/Psychological: Reports: no symptoms. Hematologic/Endocrine: Reports: no symptoms. Immunologic/Allergic: Reports: no symptoms Objective Objective: Vital Signs Date Time Temp Pulse Resp B/P B/P Pulse O2 O2 Flow FiO2 Mean Ox Delivery Rate 07/04 0555 97.1 81 18 154/86 97 CPAP 2.0L 07/04 0036 88 98 07/03 2254 58 97 07/03 2250 97 Nasal 3.0L Cannula 07/03 2124 97.7 73 18 144/82 95 Nasal 2.0L Cannula 07/03 2109 95 Nasal 2.0L Cannula 07/03 2108 73 144/82 07/03 1600 93 Nasal 2.0L Cannula 07/03 1500 97.4 75 20 146/80 96 07/03 1142 94 Nasal 3.0L Cannula 07/03 1041 75 146/82 07/03 1041 75 146/82 Intake & Output 07/04 1600 07/04 0800 07/04 0000 Intake Total Output Total Balance Patient 212 lb Weight Weight Bed scale Measurement Method Physical Exam General Appearance: Alert, Oriented X3, Cooperative, No Acute Distress HEENT: Atraumatic Cardiovascular: irregular Lungs: Clear to ascultation Abdomen: Normal Bowel Sounds, Soft, No Tenderness Extremities: No Edema, Normal Pulses, No Tenderness/Swelling Current Medications Sig/Dimitris Start time Last Medication Dose Route Stop Time Status Admin Acetaminophen 650 MG Q6P PRN 07/01 1715 AC PO Albuterol Sulfate 3 ML Q4-PRN PRN 07/01 1900 AC INH Atorvastatin Calcium 80 MG 1700 07/02 1700 AC 07/03 PO 1715 Azithromycin 250 MG DAILY 07/03 1019 AC 07/03 PO 1232 Azithromycin 500 MG 2200 07/01 2200 DC 07/02 Dextrose/Water 250 ML IV 2126 Cinacalcet 30 MG DAILY 07/03 1345 CAN PO Docusate Sodium 100 MG DAILY PRN 07/02 1030 AC 07/02 PO 1021 Furosemide 40 MG DAILY 07/02 1000 AC 07/03 IV 1042 Insulin Aspart 0 TIDAC 07/02 0800 AC 07/03 SC 1719 Losartan Potassium 50 MG DAILY 07/02 1000 AC 07/03 PO 1041 Methylprednisolone 40 MG Q24 07/03 1000 AC 07/03 IV 1043 Metoprolol Succinate 50 MG BID 07/01 2200 AC 07/03 PO 2108 Omeprazole 40 MG DAILY AC 07/03 0816 AC 07/04 PO 0546 Polyethylene Glycol 17 GM DAILY 07/03 1345 AC 07/03 PO 1715 Rivaroxaban 20 MG DAILY 07/02 1000 AC 07/03 PO 1041 Results Results: Laboratory Tests 07/04/17 0632: Sodium Pending, Potassium Pending, Chloride Pending, Carbon Dioxide Pending, Anion Gap Pending, BUN Pending, Creatinine Pending, BUN/Creatinine Ratio Pending , CBC w Diff Pending, WBC Pending, RBC Pending, Hgb Pending, Hct Pending, MCV Pending, MCH Pending, RDW Pending, Plt Count Pending, MPV Pending, Gran % Pending, Lymphocytes % Pending, Monocytes % Pending, Eosinophils % Pending, Basophils % Pending, Absolute Granulocytes Pending, Absolute Lymphocytes Pending , Absolute Monocytes Pending, Absolute Eosinophils Pending, Absolute Basophils Pending, PUBS MCHC Pending 07/03/17 0615: Anion Gap 17 H, Estimated GFR > 60, BUN/Creatinine Ratio 17.0, Phosphorus 4.2, Magnesium 2.2, CBC w Diff NO MAN DIFF REQ, RBC 4.73, MCV 87.6, MCH 28.4, RDW 15.6 H, MPV 9.3, Gran % 85.1 H, Lymphocytes % 7.3 L, Monocytes % 7.6, Eosinophils % 0, Basophils % 0, Absolute Granulocytes 10.4 H, Absolute Lymphocytes 0.9 L, Absolute Monocytes 0.9 H, Absolute Eosinophils 0, Absolute Basophils 0, PUBS MCHC 32.4 L 07/02/17 1405: D-Dimer High Sensitivty 762 H 07/02/17 0615: Anion Gap 18 H, Estimated GFR > 60, BUN/Creatinine Ratio 13.8, CBC w Diff NO MAN DIFF REQ, RBC 4.88, MCV 87.3, MCH 28.3, RDW 15.8 H, MPV 9.2, Gran % 87.5 H , Lymphocytes % 11.1 L, Monocytes % 1.3 L, Eosinophils % 0.1, Basophils % 0, Absolute Granulocytes 4.7, Absolute Lymphocytes 0.6 L, Absolute Monocytes 0.1, Absolute Eosinophils 0, Absolute Basophils 0, PUBS MCHC 32.4 L 07/01/17 1945: Troponin I 0.01 07/01/17 1720: pH 7.48 H, pCO2 28 L, pO2 62 L, HCO3 21, ABG O2 Sat (Measured) 90.0 L, Carboxyhemoglobin 2.1, O2 Concentration % RA, O2 Delivery Method RA, Phlebotomy Draw Site LEFT RADIAL 07/01/17 1321: Anion Gap 15, Estimated GFR > 60, BUN/Creatinine Ratio 10.0, Glucose 129 H, Calcium 9.1, Total Bilirubin 1.2, AST 22, ALT 37, Alkaline Phosphatase 101, Troponin I < 0.01, Nyf-B-Dfbjuolkbjm Pept 4480 H, Total Protein 7.4, Albumin 4.1, Globulin 3.3, Albumin/Globulin Ratio 1.2, CBC w Diff NO MAN DIFF REQ, RBC 5.11, MCV 88.3, MCH 27.6, RDW 15.7 H, MPV 8.8, Gran % 78.3 H, Lymphocytes % 9.9 L, Monocytes % 9.5 H, Eosinophils % 1.9, Basophils % 0.4, Absolute Granulocytes 6.6 H, Absolute Lymphocytes 0.8 L, Absolute Monocytes 0.8 H, Absolute Eosinophils 0.2, Absolute Basophils 0, PUBS MCHC 31.3 L 07/01/17 1225: Jhf-L-Srpwyfwiwud Pept Cancelled Microbiology 07/01 1510 NASOPHARYN: Influenza Virus A & B Rapid Smear - COMP Assessment/Plan Assessment: Myles Davis is a 77-year-old male with past medical history of atrial fibrillation on rivaroxaban followed by Dr. Lyle, hypertension, coronary artery disease status post stents 10 years ago, COPD followed by Dr. Huerta, LUCY with CPAP, diabetes mellitus, and prostate cancer who presents with shortness of breath.Admitted to telemetry and treated for the followin)Dyspnea 2)Left sided pleural effusion 3)Nonsustained Ventricular Tachycardia Plan: Dyspnea: Patient has a history of COPD,CAD and Afibb.His dyspnea may be related to a COPD exacerbation versus decompensated heart failure versus upper respiratory infection given his symptoms.On CXray small left pleural effusions were noted w/ increased vascular congestion.There was no JVD,crackles,or lower extremity edema on physical exam.BNP was found to be elevated.Chest CT showed evidence of cardiomeagaly.He is currently on anticoagulation. EKG and troponins 2 negative. Initial ABG showed respiratory alkalosis. TTE revealed EF 60% and severe left atrial enlargement and moderate to severe pulmonary hypertension.CTA revealed no evidence of PE.Patient feels as though his breathing is improving and has been on room air. -Appreciate cardiology recommendations -Appreciate pulmonology recommendations -TRC nebs -Daily weights, I's and O's -Furosemide 40 mg IV daily -Methylprednisolone 40 mg IV daily -Azithromycin -CPAP Nonsustained Ventricular Tachycardia Patient continues to have episodes of NSVT w/ 4-11 beat runs consistently.Electrolytes found to be WNL.Patient is asymptomatic and reports no SOB,CP or Palpitations. -Continue to monitor -Appreciate cardiology recommendations Chronic medical problems: -Continue home atorvastatin, docusate, rivaroxaban, losartan, omeprazole, metoprolol DVT prophylaxis with rivaroxaban Heart healthy diet Full code
[2017-07-04 08:14] LABS: ABSOLUTE BASOPHIL COUNT 0 /CUMM (0.0-0.2); ABSOLUTE EOSINOPHIL COUNT 0 /CUMM (0.0-0.7); ABSOLUTE GRANULOCYTE CT 10.9 /CUMM (1.4-6.5); ABSOLUTE LYMPH COUNT 1.1 /CUMM (1.2-3.4); ABSOLUTE MONOCYTE COUNT 0.8 /CUMM (0.10-0.60); BASOPHIL % 0 % (0.0-2.0); EOSINOPHIL % 0 % (0-5); GRANULOCYTE % 84.6 % (42.2-75.2); HEMATOCRIT 44.1 % (42-52); MEAN CORPUSCULAR HGB 28.1 PG (27.0-31.0); MEAN CORPUSCULAR HGB CONC 31.8 G/DL (33.0-37.0); MEAN CORPUSCULAR VOLUME 88.5 FL (80.0-94.0); MEAN PLATELET VOLUME 9.4 FL (7.4-10.4); PLATELET COUNT 189 /CUMM (130-400); RBC DISTRIBUTION WIDTH 15.5 % (11.5-14.5); RED BLOOD CELL CT 4.98 /CUMM (4.70-6.10); WHITE BLOOD CELL COUNT 12.8 /CUMM (4.8-10.8)
--- NOTE | 2017-07-04 14:24 | RADIOLOGY REPORT ---
EXAMINATION: XR CHEST CLINICAL INFORMATION: Pleural effusion. Shortness of breath. COMPARISON: Chest x-ray 07/03/[address] 07/02/2017 TECHNIQUE: 2 views of the chest were obtained. FINDINGS: The cardiac silhouette is enlarged. Atherosclerotic disease of an ectatic thoracic aorta. Interval improvement in aeration of the left hemithorax. A small to moderate-sized left pleural effusion persists which demonstrates interval decrease in size. 1 cm nodular density projecting over the left midlung potentially represents a vessel on end or pulmonary nodule. Similar prominence of the central pulmonary vasculature and interstitial markings within the right lower lobe. No gross consolidation or pleural effusion within the right hemithorax. Degenerative changes of the spine. IMPRESSION: 1. Improved aeration of the left hemithorax with interval decrease in size of left-sided pleural effusion, now small to moderate. 2. Persistent prominence of the central pulmonary vasculature and interstitial markings within the right lower lobe. This is a nonspecific finding. Pulmonary edema is within the differential. Clinical correlation is recommended. 3. 1 cm nodular density projects over the left midlung. This likely represents a vessel on end, however, a pulmonary nodule cannot be entirely excluded. No definitive nodule was noted on recent chest CT, however, the pleural effusion was much larger at that time. A follow-up diagnostic chest CT may be warranted in 3-6 months, after this acute event resolves.
[2017-07-04 14:43] VITALS: BP 120/80
--- NOTE | 2017-07-04 17:25 | PN- Cardiology ---
Subjective Subjective: * Patient feels that his breathing is improved but he now reports mild chest discomfort and he has noted palpitations with lightheadedness. * Multiple episodes of NSVT * EF is normal at 60% Objective Vital Signs and I&Os Vital Signs Date Time Temp Pulse Resp B/P B/P Pulse O2 O2 Flow FiO2 Mean Ox Delivery Rate 07/04 1443 97.5 79 22 120/80 91 07/04 1300 93 Nasal 3.0L Cannula 07/04 0843 70 148/88 07/04 0842 70 148/88 07/04 0800 95 Nasal 2.0L Cannula 07/04 0555 97.1 81 18 154/86 97 CPAP 2.0L 07/04 0036 88 98 07/03 2254 58 97 07/03 2250 97 Nasal 3.0L Cannula 07/03 2123 97.7 73 18 144/82 95 Nasal 2.0L Cannula 07/039 95 Nasal 2.0L Cannula 07/03 2108 73 144/82 Intake & Output 07/04 1600 07/04 0800 07/04 0000 07/03 1600 07/03 0800 07/03 0000 Intake Total 600 250 250 Output Total 800 600 500 200 Balance -200 -600 -250 50 Intake, IV 250 Intake, Oral 600 250 Output, Urine 800 600 500 200 Patient 212 lb Weight Weight Bed scale Measurement Method Physical Exam: General: WD/overweight male in NAD; alert and oriented x 3 Neck: no JVD Heart: RRR with ectopy Lungs: decreaed breath sounds at the bases Extremities: no edema Assessment/Plan Assessment/Plan * This patient has undergone a V-tach ablation about 10 years ago. His VT subsequently came back but not to this degree. These copious episodes of VT may be causes his CHF although coronary artery disease cannot be excluded as the cause of both his worsening VT and CHF. We will risk stratify this patient with a pharmacologic stress test in the morning. * Begin Sotolol 40mg BID and stop Metoprolol. Also begin Mexilitine 150mg TID. Continue telemetry? Yes
[2017-07-04 22:00] VITALS: BP 148/80
[2017-07-05 06:00] VITALS: BP 148/104
--- NOTE | 2017-07-05 07:06 | PN- Housestaff ---
See Addendum Subjective Follow-up For: nsvt, chf Tele-Events Since Last Visit: Many NSVT, 70-90 Subjective: No overnight events. He feels ok this morning. Complaining of SOB and left chest tightness when walking to the bathroom. Going for pharm stress test this AM. Review of Systems Constitutional: Reports: no symptoms. EENTM: Reports: no symptoms. Cardiovascular: Reports: see HPI. Respiratory: Reports: see HPI. Gastrointestinal: Reports: see HPI. Genitourinary: Reports: no symptoms. Musculoskeletal: Reports: no symptoms. Skin: Reports: no symptoms. Neurological/Psychological: Reports: no symptoms. Hematologic/Endocrine: Reports: no symptoms. Immunologic/Allergic: Reports: no symptoms. Objective Last 24 Hrs of Vital Signs/I&O Vital Signs Date Time Temp Pulse Resp B/P B/P Pulse O2 O2 Flow FiO2 Mean Ox Delivery Rate 07/05 0000 CPAP 07/04 2200 97.6 75 20 148/80 96 Nasal Cannula 07/04 1600 Nasal 2.0L Cannula 07/04 1443 97.5 79 22 120/80 91 07/04 1300 93 Nasal 3.0L Cannula 07/04 0843 70 148/88 07/04 0842 70 148/88 07/04 0800 95 Nasal 2.0L Cannula Intake & Output 07/05 0800 07/05 0000 07/04 1600 Intake Total 200 600 Output Total 800 Balance 200 -200 Intake, Oral 200 600 Output, Urine 800 Physical Exam General Appearance: Alert, Oriented X3, Cooperative, No Acute Distress Cardiovascular: Regular Rate, Normal S1, Normal S2 Lungs: Clear to Auscultation, Normal Air Movement Abdomen: Normal Bowel Sounds, Soft, No Tenderness Extremities: No Edema Current Medications: Current Medications Sig/Dimitris Start time Last Medication Dose Route Stop Time Status Admin Acetaminophen 650 MG Q6P PRN 07/01 1715 AC PO Albuterol Sulfate 3 ML Q4-PRN PRN 07/01 1900 AC INH Atorvastatin Calcium 80 MG 1700 07/02 1700 AC 07/04 PO 1725 Azithromycin 250 MG DAILY 07/03 1019 DC 07/04 PO 0843 Docusate Sodium 100 MG DAILY PRN 07/02 1030 AC 07/02 PO 1021 Furosemide 40 MG DAILY 07/02 1000 AC 07/04 IV 0843 Insulin Aspart 0 TIDAC 01/21 0800 AC 07/04 SC 1728 Losartan Potassium 50 MG DAILY 07/02 1000 AC 07/04 PO 0842 Methylprednisolone 40 MG Q24 07/03 1000 DC 07/04 IV 0843 Metoprolol Succinate 50 MG BID 07/01 2200 DC 07/04 PO 0843 Mexiletine HCl 150 MG Q8 07/04 2200 AC 07/05 PO 0639 Omeprazole 40 MG DAILY AC 07/03 0816 AC 07/05 PO 0639 Polyethylene Glycol 17 GM DAILY 07/03 1345 AC 07/04 PO 0843 Prednisone 40 MG DAILY 07/05 1000 AC PO Rivaroxaban 20 MG DAILY 07/02 1000 AC 07/04 PO 0843 Sotalol HCl 40 MG BID 07/04 2200 AC 07/04 PO 2200 Assessment/Plan Assessment: Mr. Davis is a 77-year-old male with past medical history of atrial fibrillation on rivaroxaban followed by Dr. Lyle, hypertension, coronary artery disease status post stents 10 years ago, COPD followed by Dr. Huerta, LUCY with CPAP, diabetes mellitus, severe pulmonary hypertension, and prostate cancer who presents with shortness of breath. Problem List: 1. COPD/CHF 2. Left-sided pleural effusion 3. Acute hypoxic respiratory failure 4. Hypernatremia 5. Nonsustained ventricular tachycardia #COPD/CHF: Patient has a history of COPD, coronary artery disease, and atrial fibrillation. His dyspnea may be related to a COPD exacerbation versus decompensated heart failure versus upper respiratory infection. He does have a pleural effusion on x-ray and perhaps some increased pulmonary vascular congestion. He does not have JVD, significant extremity edema, or crackles on exam. BNP is elevated but this is nonspecific. Well's score 0 and he is on anticoagulation. EKG and troponins 2 negative. Initial ABG showed respiratory alkalosis. TTE revealed EF 60% and severe left atrial enlargement and moderate to severe pulmonary hypertension. He is negative for [address] shows small left -sided pleural effusion, partial collapse consolidation of the left lower lobe, and extensive emphysematous disease. CTA revealed no evidence of PE, right atrial enlargement read with reflux of contrast in the hepatic veins is adjusting elevated right heart pressures that are likely chronic, and in moderate left-sided pleural effusion with left basilar atelectasis. He does feel that his breathing is improved though he still gets short of breath and some chest tightness with exertion. -Appreciate cardiology recommendations -Appreciate pulmonology recommendations -[facility] nebs -Daily weights, I's and O's -Furosemide 40 mg IV daily. Consider switching to PO. -Pred taper per pulm -CPAP #Nonsustained ventricular tachycardia: Patient has had many episodes of NSVT including a 11 beat run. He was asymptomatic. Electrolytes have been followed and are normal. He will potentially be going for pharmacological stress test today. He may have some underlying coronary disease. -Continue to monitor -Appreciate cardiology recommendations #Hypernatremia: Resolved. -Continue to monitor #Chronic medical problems: -Continue home atorvastatin, docusate, rivaroxaban, losartan, omeprazole, metoprolol DVT prophylaxis with rivaroxaban Heart healthy diet Full code Problem List: 1. Dyspnea Pain Ratin Pain Location: none Pain Goal: Remain pain free Pain Plan: see a/p Tomorrow's Labs & Rationales: cbc
--- NOTE | 2017-07-05 07:13 | PN- Student ---
Subjective Subjective: FOLLOW UP FOR : ATRIAL FLUTTER/AFIB TELE EVENTS: Begining at midnight to this morning -A Flutter 80-87 PVC's with Bigeminy Subjective: No overnight events.Patient is alert and responsive.Reports that he has had good sleep,no chills ,fevers,SOB or CP.Mentioned that yesterday around 11.30 while coming back from the bathroom he experienced some SOB and chest pain but it has since resolved. Review of Systems Review of Systems Constitutional: Reports: no symptoms. Cardiovascular: Denies: chest pain, palpitations. Respiratory: Denies: cough, short of breath. Objective Objective: Vital Signs Date Time Temp Pulse Resp B/P B/P Pulse O2 O2 Flow FiO2 Mean Ox Delivery Rate 07/05 0705 73 140/104 07/05 0600 98.1 55 20 148/104 95 07/05 0000 CPAP Intake & Output 07/05 1600 07/05 0800 07/05 0000 Intake Total 200 Output Total Balance 200 Intake, Oral 200 Physical Exam: General Appearance: Alert, Oriented X3, Cooperative, No Acute Distress Cardiovascular: Normal S1, Normal S2 Lungs: Clear to Auscultation Abdomen: Normal Bowel Sounds, Soft, No Tenderness Extremities: No Edema Current Medications Sig/Dimitris Start time Last Medication Dose Route Stop Time Status Admin Acetaminophen 650 MG Q6P PRN 07/01 1715 AC PO Albuterol Sulfate 3 ML Q4-PRN PRN 07/01 1900 AC INH Atorvastatin Calcium 80 MG 1700 07/02 1700 AC 07/04 PO 1725 Azithromycin 250 MG DAILY 07/03 1019 DC 07/04 PO 0843 Docusate Sodium 100 MG DAILY PRN 07/02 1030 AC 07/02 PO 1021 Furosemide 40 MG DAILY 07/02 1000 AC 07/04 IV 0843 Insulin Aspart 0 TIDAC 07/02 0800 AC 07/04 SC 1728 Losartan Potassium 50 MG DAILY 07/02 1000 AC 07/05 PO 0705 Methylprednisolone 40 MG Q24 07/03 1000 DC 07/04 IV 0843 Metoprolol Succinate 50 MG BID 07/01 2200 DC 07/04 PO 0843 Mexiletine HCl 150 MG Q8 07/04 2200 AC 07/05 PO 0639 Omeprazole 40 MG DAILY AC 07/03 0816 AC 07/05 PO 0639 Polyethylene Glycol 17 GM DAILY 07/03 1345 AC 07/04 PO 0843 Prednisone 40 MG DAILY 07/05 1000 AC PO Rivaroxaban 20 MG DAILY 07/02 1000 AC 07/04 PO 0843 Sotalol HCl 40 MG BID 07/04 2199 AC 07/04 PO 2199 Results Results: Laboratory Tests 07/05/17 0645: Sodium Pending, Potassium Pending, Chloride Pending, Carbon Dioxide Pending, Anion Gap Pending, BUN Pending, Creatinine Pending, BUN/Creatinine Ratio Pending , CBC w Diff NO MAN DIFF REQ, RBC 5.07, MCV 87.3, MCH 28.1, RDW 15.7 H, MPV 9.6 , Gran % 82.2 H, Lymphocytes % 8.8 L, Monocytes % 8.7, Eosinophils % 0, Basophils % 0.3, Absolute Granulocytes 11.0 H, Absolute Lymphocytes 1.2, Absolute Monocytes 1.2 H, Absolute Eosinophils 0, Absolute Basophils 0, PUBS MCHC 32.3 L 07/04/17 0632: Anion Gap 18 H, Estimated GFR > 60, BUN/Creatinine Ratio 22.2, Phosphorus 4.3, Magnesium 2.1, CBC w Diff NO MAN DIFF REQ, RBC 4.98, MCV 88.5, MCH 28.1, RDW 15.5 H, MPV 9.4, Gran % 84.6 H, Lymphocytes % 8.8 L, Monocytes % 6.6, Eosinophils % 0, Basophils % 0, Absolute Granulocytes 10.9 H, Absolute Lymphocytes 1.1 L, Absolute Monocytes 0.8 H, Absolute Eosinophils 0, Absolute Basophils 0, PUBS MCHC 31.8 L 07/03/17 0615: Anion Gap 17 H, Estimated GFR > 60, BUN/Creatinine Ratio 17.0, Phosphorus 4.2, Magnesium 2.2, CBC w Diff NO MAN DIFF REQ, RBC 4.73, MCV 87.6, MCH 28.4, RDW 15.6 H, MPV 9.3, Gran % 85.1 H, Lymphocytes % 7.3 L, Monocytes % 7.6, Eosinophils % 0, Basophils % 0, Absolute Granulocytes 10.4 H, Absolute Lymphocytes 0.9 L, Absolute Monocytes 0.9 H, Absolute Eosinophils 0, Absolute Basophils 0, PUBS MCHC 32.4 L 07/02/17 1405: D-Dimer High Sensitivty 762 H C.Xray: 1. Improved aeration of the left hemithorax with interval decrease in size of left-sided pleural effusion, now small to moderate. 2. Persistent prominence of the central pulmonary vasculature and interstitial markings within the right lower lobe. This is a nonspecific finding. Pulmonary edema is within the differential. Clinical correlation is recommended. 3. 1 cm nodular density projects over the left midlung. This likely represents a vessel on end, however, a pulmonary nodule cannot be entirely excluded. No definitive nodule was noted on recent chest CT, however, the pleural effusion was much larger at that time. A follow-up diagnostic chest CT may be warranted in 3-6 months, after this acute event resolves. Assessment/Plan Assessment: Myles Davis is a 77-year-old male with past medical history of atrial fibrillation on rivaroxaban followed by Dr. Lyle, hypertension, coronary artery disease status post stents 10 years ago, COPD followed by Dr. Huerta, LUCY with CPAP, diabetes mellitus, and prostate cancer who presents with shortness of breath.Admitted to telemetry and treated for the followin)Dyspnea 2)Left sided pleural effusion 3)Nonsustained Ventricular Tachycardia Plan: Dyspnea: Patient has a history of COPD,CAD and Afibb.His dyspnea may be related to a COPD exacerbation versus decompensated heart failure versus upper respiratory infection given his symptoms.On CXray small left pleural effusions were noted w/ increased vascular congestion.There was no JVD,crackles,or lower extremity edema on physical exam.BNP was found to be elevated.Chest CT showed evidence of cardiomeagaly.He is currently on anticoagulation. EKG and troponins 2 negative. Initial ABG showed respiratory alkalosis. TTE revealed EF 60% and severe left atrial enlargement and moderate to severe pulmonary hypertension.CTA revealed no evidence of PE.Patient feels as though his breathing is improving and has been on room air. -Appreciate cardiology recommendations -Appreciate pulmonology recommendations -TRC nebs -Daily weights, I's and O's -Furosemide 40 mg IV daily -Methylprednisolone 40 mg IV daily -Azithromycin -CPAP Nonsustained Ventricular Tachycardia Patients episodes of VTach have decreased overnight but still has Aflutter at 80 -87bpm,PVC's and episodes of Bigeminy..Electrolytes found to be WNL.Patient is asymptomatic and reports no SOB,CP or Palpitations.Pharmocologic stress test ordered for today.As per cardio begin sotalol 40mg bid,stop metoprolol and begin mexilitine 150mg TID. -Continue to monitor -Appreciate cardiology recommendations Chronic medical problems: -Continue home atorvastatin, docusate, rivaroxaban, losartan, omeprazole, metoprolol DVT prophylaxis with rivaroxaban Heart healthy diet Full code
[2017-07-05 08:18] LABS: ABSOLUTE BASOPHIL COUNT 0 /CUMM (0.0-0.2); ABSOLUTE EOSINOPHIL COUNT 0 /CUMM (0.0-0.7); ABSOLUTE LYMPH COUNT 1.2 /CUMM (1.2-3.4); ABSOLUTE MONOCYTE COUNT 1.2 /CUMM (0.10-0.60); BASOPHIL % 0.3 % (0.0-2.0); EOSINOPHIL % 0 % (0-5); GRANULOCYTE % 82.2 % (42.2-75.2); HEMATOCRIT 44.3 % (42-52); MEAN CORPUSCULAR HGB 28.1 PG (27.0-31.0); MEAN CORPUSCULAR HGB CONC 32.3 G/DL (33.0-37.0); MEAN CORPUSCULAR VOLUME 87.3 FL (80.0-94.0); MEAN PLATELET VOLUME 9.6 FL (7.4-10.4); PLATELET COUNT 182 /CUMM (130-400); RBC DISTRIBUTION WIDTH 15.7 % (11.5-14.5); RED BLOOD CELL CT 5.07 /CUMM (4.70-6.10); WHITE BLOOD CELL COUNT 13.4 /CUMM (4.8-10.8)
[2017-07-05 19:27] VITALS: BP 102/60
--- NOTE | 2017-07-05 19:42 | PN- Cardiology ---
Subjective Subjective: Feels as though his breathing has continued to improve. Still experiencing some ventricular ectopy with PVCs and occasional bigeminy, but less than previously. Objective Vital Signs and I&Os Vital Signs Date Time Temp Pulse Resp B/P B/P Pulse O2 O2 Flow FiO2 Mean Ox Delivery Rate 07/05 1926 97.7 82 20 102/60 95 Room Air 07/05 0800 97 Room Air 07/05 0705 73 140/104 07/05 0600 98.1 55 20 148/104 95 07/05 0000 CPAP 07/04 2199 97.6 75 20 148/80 96 Nasal Cannula Intake & Output 07/05 1600 07/05 0800 07/05 0000 07/04 1600 07/04 0800 07/04 0000 Intake Total 750 200 600 Output Total 550 800 Balance 200 200 -200 Intake, Oral 750 200 600 Number 1 Bowel Movements Output, Urine 550 800 Patient 211 lb 212 lb Weight Weight Bed scale Bed scale Measurement Method Physical Exam: Well-developed, obese elderly male in no acute distress with nasal oxygen in place. Vital signs: See above. HEENT: Normocephalic, atraumatic, EOMI, moist mucous membranes. Neck: Right CEA scar. No JVD, no bruits. Lungs: Decreased breath sounds bilaterally. Heart: S1, S2 with grade 1/6 systolic murmur. PMI not well felt. No gallop or rub. Abdomen: Soft, nontender, positive bowel sounds. Extremities: No edema. Current Medications: Current Medications Sig/Dimitris Start time Last Medication Dose Route Stop Time Status Admin Acetaminophen 650 MG Q6P PRN 07/01 1715 AC PO Albuterol Sulfate 3 ML Q4-PRN PRN 07/01 1900 AC INH Atorvastatin Calcium 80 MG 1700 07/02 1700 AC 07/05 PO 1708 Dipyridamole 55 MG ONE 07/06 0000 NR Dextrose/Water 29 ML IV 07/06 2359 Docusate Sodium 100 MG DAILY PRN 07/02 1030 AC 07/02 PO 1021 Furosemide 40 MG DAILY 07/02 1000 AC 07/05 IV 0852 Insulin Aspart 0 TIDAC 07/02 0800 AC 07/05 SC 1713 Losartan Potassium 50 MG DAILY 07/02 1000 AC 07/05 PO 0705 Mexiletine HCl 150 MG Q8 07/04 2200 AC 07/05 PO 1440 Omeprazole 40 MG DAILY AC 07/03 0816 AC 07/05 PO 0639 Polyethylene Glycol 17 GM DAILY 07/03 1345 AC 07/04 PO 0843 Prednisone 10 MG DAILY 07/10 1000 AC PO 07/11 1001 Prednisone 20 MG DAILY 07/08 1000 AC PO 07/09 1001 Prednisone 30 MG DAILY 07/06 1000 CAN PO 07/12 0959 Prednisone 30 MG DAILY 07/06 1000 AC PO 07/07 1001 Prednisone 40 MG DAILY 07/05 1000 DC 07/05 PO 0851 Rivaroxaban 20 MG DAILY 07/02 1000 AC 07/05 PO 0851 Sotalol HCl 40 MG BID 07/04 2200 AC 07/05 PO 0852 Results Last 48 Hrs of Labs/Mics: Laboratory Tests 07/05/17 0645: Anion Gap 17 H, Estimated GFR > 60, BUN/Creatinine Ratio 28.8 H, CBC w Diff NO MAN DIFF REQ, RBC 5.07, MCV 87.3, MCH 28.1, RDW 15.7 H, MPV 9.6, Gran % 82.2 H , Lymphocytes % 8.8 L, Monocytes % 8.7, Eosinophils % 0, Basophils % 0.3, Absolute Granulocytes 11.0 H, Absolute Lymphocytes 1.2, Absolute Monocytes 1.2 H, Absolute Eosinophils 0, Absolute Basophils 0, PUBS MCHC 32.3 L 07/04/17 0632: Anion Gap 18 H, Estimated GFR > 60, BUN/Creatinine Ratio 22.2, Phosphorus 4.3, Magnesium 2.1, CBC w Diff NO MAN DIFF REQ, RBC 4.98, MCV 88.5, MCH 28.1, RDW 15.5 H, MPV 9.4, Gran % 84.6 H, Lymphocytes % 8.8 L, Monocytes % 6.6, Eosinophils % 0, Basophils % 0, Absolute Granulocytes 10.9 H, Absolute Lymphocytes 1.1 L, Absolute Monocytes 0.8 H, Absolute Eosinophils 0, Absolute Basophils 0, PUBS MCHC 31.8 L Recent Imaging Studies: CXR 07/04/2017: 1. Improved aeration of the left hemithorax with interval decrease in size of left-sided pleural effusion, now small to moderate. 2. Persistent prominence of the central pulmonary vasculature and interstitial markings within the right lower lobe. This is a nonspecific finding. Pulmonary edema is within the differential. Clinical correlation is recommended. 3. 1 cm nodular density projects over the left midlung. This likely represents a vessel on end, however, a pulmonary nodule cannot be entirely excluded. No definitive nodule was noted on recent chest CT, however, the pleural effusion was much larger at that time. A follow-up diagnostic chest CT may be warranted in 3-6 months, after this acute event resolves. Assessment/Plan Assessment/Plan [id number] w/ hx fmr tob use, COPD, LUCY w/ CPAP, prostate ca, HTN, HLD, DM, vasc dz (s/p CEA; ? endostent AAA), AF on NOAC, & CAD (s/p stent ~1999) who presented 07/01/2017 w/ a 2 wk hx of progressive exertional SOB, orthopnea, PND, etc., as well as, associated exertional chest discomfort w/ small L-sided pleural effusion and partial collapsed consolidation of LLL of the lung noted, elevated NT PRO-BNP, normal WBC count w/ L shift, etc. Suspect his presentation is 2/2 an AECOPD & a component of HF and would continue to treat both conditions. He received empiric antimicrobial therapy, as well as, IV furosemide 40 mg in the ED and is feeling improved. Less ventricular ectopy after antiarrhythmic therapy. Recommendations: * Continue on telemetry. * Continue present medical regimen. * Planned pharmacologic stress test tomorrow. * Continue IV furosemide 40 mg daily and reassess the need for further IV diuresis in the a.m. * Repeat CXR in a.m. * Continue antimicrobial therapy, steroids, etc. as per hospitalist.
[2017-07-06 06:00] VITALS: BP 172/84
--- NOTE | 2017-07-06 07:19 | PN- Student ---
Subjective Subjective: Follow up for: Atrial flutter , NSVT Tele-Events Since Last Visit: NVST,Aflutter 70 - 80's Subjective: No overnight events.Patient reports he slept well and is in good spirits.Is being taken for a pharmocological stress test this morning. Review of Systems Review of Systems Constitutional: Reports: no symptoms. Cardiovascular: Denies: chest pain, palpitations. Respiratory: Denies: short of breath. Objective Objective: Vital Signs Date Time Temp Pulse Resp B/P B/P Pulse O2 O2 Flow FiO2 Mean Ox Delivery Rate 07/06 0710 172/84 07/06 0600 97.9 80 18 172/84 98 07/06 0129 67 96 07/06 0000 95 Nasal 2.0L Cannula 07/05 192 97.7 82 20 102/60 95 Room Air Intake & Output 07/06 1600 07/06 0800 07/06 0000 Intake Total 460 Output Total Balance 460 Intake, IV 10 Intake, Oral 450 Number 0 Bowel Movements Physical Exam General Appearance: Alert, Oriented X3, Cooperative, No Acute Distress Cardiovascular: irregular Lungs: Clear to Auscultation Abdomen: Normal Bowel Sounds, Soft, No Tenderness Extremities: No Edema Current Medications Sig/Dimitris Start time Last Medication Dose Route Stop Time Status Admin Acetaminophen 650 MG Q6P PRN 07/01 1715 AC 07/06 PO 1113 Albuterol Sulfate 3 ML Q4-PRN PRN 07/01 1900 AC INH Atorvastatin Calcium 80 MG 1700 07/02 1700 AC 07/05 PO 1708 Dipyridamole 55 MG ONE 07/06 0000 NR Dextrose/Water 29 ML IV 07/06 2359 Docusate Sodium 100 MG DAILY PRN 07/02 1030 AC 07/02 PO 1021 Furosemide 40 MG DAILY 07/07 1000 AC PO Furosemide 40 MG DAILY 07/02 1000 DC 07/06 IV 1113 Insulin Aspart 0 TIDAC 07/02 0800 AC 07/05 SC 1713 Losartan Potassium 50 MG DAILY 07/02 1000 AC 07/06 PO 0710 Mexiletine HCl 150 MG Q8 07/04 2200 AC 07/06 PO 0512 Omeprazole 40 MG DAILY AC 07/03 0816 AC 07/06 PO 0512 Polyethylene Glycol 17 GM DAILY 07/03 1345 AC 07/04 PO 0843 Prednisone 10 MG DAILY 07/10 1000 AC PO 07/11 1001 Prednisone 20 MG DAILY 07/08 1000 AC PO 07/09 1001 Prednisone 30 MG DAILY 07/06 1000 AC 07/06 PO 07/07 1001 1112 Rivaroxaban 20 MG DAILY 07/02 1000 AC 07/06 PO 111 Sotalol HCl 40 MG BID 07/04 2199 AC 07/06 PO 111 Results Results: Laboratory Tests 07/06/17 0617: Anion Gap 17 H, Estimated GFR > 60, BUN/Creatinine Ratio 30.0 H 07/05/17 0645: Anion Gap 17 H, Estimated GFR > 60, BUN/Creatinine Ratio 28.8 H, CBC w Diff NO MAN DIFF REQ, RBC 5.07, MCV 87.3, MCH 28.1, RDW 15.7 H, MPV 9.6, Gran % 82.2 H , Lymphocytes % 8.8 L, Monocytes % 8.7, Eosinophils % 0, Basophils % 0.3, Absolute Granulocytes 11.0 H, Absolute Lymphocytes 1.2, Absolute Monocytes 1.2 H, Absolute Eosinophils 0, Absolute Basophils 0, PUBS MCHC 32.3 L 07/04/17 0632: Anion Gap 18 H, Estimated GFR > 60, BUN/Creatinine Ratio 22.2, Phosphorus 4.3, Magnesium 2.1, CBC w Diff NO MAN DIFF REQ, RBC 4.98, MCV 88.5, MCH 28.1, RDW 15.5 H, MPV 9.4, Gran % 84.6 H, Lymphocytes % 8.8 L, Monocytes % 6.6, Eosinophils % 0, Basophils % 0, Absolute Granulocytes 10.9 H, Absolute Lymphocytes 1.1 L, Absolute Monocytes 0.8 H, Absolute Eosinophils 0, Absolute Basophils 0, PUBS MCHC 31.8 L Assessment/Plan Assessment: Myles Davis is a 77-year-old male with past medical history of atrial fibrillation on rivaroxaban followed by Dr. Lyle, hypertension, coronary artery disease status post stents 10 years ago, COPD followed by Dr. Huerta, LUCY with CPAP, diabetes mellitus, and prostate cancer who presents with shortness of breath.Admitted to telemetry and treated for the following: Problem List : Non Sustained Ventricular Tachycardia Atrial Flutter Plan: NVST: Patient has had many episodes of NSVT including a 11 beat run. He was asymptomatic. Electrolytes have been followed and are normal. He will be going for a pharmacological stress test today. He may have some underlying coronary disease. -Continue to monitor -maybe be a candidate for cardiac catherization based on stress test results. -Appreciate cardiology recommendations Atrial Flutter: Patient currently has A.flutter 70-80's bpm. -continue meds -continue to monitor -appreciate cardiology reccomendations Chronic medical problems: -Continue home atorvastatin, docusate, rivaroxaban, losartan, omeprazole, metoprolol DVT prophylaxis with rivaroxaban Heart healthy diet Full code
--- NOTE | 2017-07-06 07:29 | PN- Housestaff ---
See Addendum Subjective Follow-up For: NSVT Tele-Events Since Last Visit: NSVTs, 70-80 Subjective: No overnight events. He doesn't think he's having the chest tightness or SOB with exertion anymore, but hasn't gotten up yet today. Going for stress test today. No other issues. Review of Systems Constitutional: Reports: no symptoms. EENTM: Reports: no symptoms. Cardiovascular: Reports: no symptoms. Respiratory: Reports: no symptoms. Gastrointestinal: Reports: no symptoms. Genitourinary: Reports: no symptoms. Musculoskeletal: Reports: no symptoms. Skin: Reports: no symptoms. Neurological/Psychological: Reports: no symptoms. Hematologic/Endocrine: Reports: no symptoms. Immunologic/Allergic: Reports: no symptoms. Objective Last 24 Hrs of Vital Signs/I&O Vital Signs Date Time Temp Pulse Resp B/P B/P Pulse O2 O2 Flow FiO2 Mean Ox Delivery Rate 07/06 0710 172/84 07/06 0129 67 96 07/06 0000 95 Nasal 2.0L Cannula 07/05 1926 97.7 82 20 102/60 95 Room Air 07/05 0800 97 Room Air Intake & Output 07/06 0800 07/06 0000 07/05 1600 Intake Total 460 750 Output Total 550 Balance 460 200 Intake, IV 10 Intake, Oral 450 750 Number 0 1 Bowel Movements Output, Urine 550 Patient 95.793 kg Weight Weight Bed scale Measurement Method Physical Exam General Appearance: Alert, Oriented X3, Cooperative, No Acute Distress Cardiovascular: irregular Lungs: Clear to Auscultation Abdomen: Normal Bowel Sounds, Soft, No Tenderness Extremities: No Edema Current Medications: Current Medications Sig/Dimitris Start time Last Medication Dose Route Stop Time Status Admin Acetaminophen 650 MG Q6P PRN 07/01 1715 AC PO Albuterol Sulfate 3 ML Q4-PRN PRN 07/01 1900 AC INH Atorvastatin Calcium 80 MG 1700 07/02 1700 AC 07/05 PO 1708 Dipyridamole 55 MG ONE 07/06 0000 NR Dextrose/Water 29 ML IV 07/06 2359 Docusate Sodium 100 MG DAILY PRN 07/02 1030 AC 07/02 PO 1021 Furosemide 40 MG DAILY 07/02 1000 AC 07/05 IV 0852 Insulin Aspart 0 TIDAC 07/02 0800 AC 07/05 SC 1713 Losartan Potassium 50 MG DAILY 07/02 1000 AC 07/06 PO 0710 Mexiletine HCl 150 MG Q8 07/04 2200 AC 07/06 PO 0512 Omeprazole 40 MG DAILY AC 07/03 0816 AC 07/06 PO 0512 Polyethylene Glycol 17 GM DAILY 07/03 1345 AC 07/04 PO 0843 Prednisone 10 MG DAILY 07/10 1000 AC PO 07/11 1001 Prednisone 20 MG DAILY 07/08 1000 AC PO 07/09 1001 Prednisone 30 MG DAILY 07/06 1000 CAN PO 07/12 0959 Prednisone 30 MG DAILY 07/06 1000 AC PO 07/07 1001 Prednisone 40 MG DAILY 07/05 1000 DC 07/05 PO 0851 Rivaroxaban 20 MG DAILY 07/02 1000 AC 07/05 PO 0851 Sotalol HCl 40 MG BID 07/04 2199 AC 07/05 PO 5 Last 24 Hrs of Lab/Reji Results Last 24 Hrs of Labs/Mics: Laboratory Tests 07/06/17 0617: Sodium Pending, Potassium Pending, Chloride Pending, Carbon Dioxide Pending, Anion Gap Pending, BUN Pending, Creatinine Pending, BUN/Creatinine Ratio Pending Assessment/Plan Assessment: Mr. Davis is a 77-year-old male with past medical history of atrial fibrillation on rivaroxaban followed by Dr. Lyle, hypertension, coronary artery disease status post stents 10 years ago, COPD followed by Dr. Huerta, LUCY with CPAP, diabetes mellitus, severe pulmonary hypertension, and prostate cancer who presents with shortness of breath. Problem List: 1. COPD/CHF 2. Left-sided pleural effusion 3. Acute hypoxic respiratory failure 4. Hypernatremia 5. Nonsustained ventricular tachycardia #COPD/CHF: Patient has a history of COPD, coronary artery disease, and atrial fibrillation. His dyspnea may be related to a COPD exacerbation versus decompensated heart failure versus upper respiratory infection. He does have a pleural effusion on x-ray and perhaps some increased pulmonary vascular congestion. Well's score was 0 and he was on anticoagulation. EKG and troponins severe left atrial enlargement and moderate to severe pulmonary hypertension. CT shows small left-sided pleural effusion, partial collapse consolidation of the left lower lobe, and extensive emphysematous disease. CTA revealed no evidence of PE, right atrial enlargement read with reflux of contrast in the hepatic veins is adjusting elevated right heart pressures that are likely chronic, and in moderate left-sided pleural effusion with left basilar atelectasis. His symptoms have mostly resolved. Ins and outs and daily weights seem inaccurate but his BUN has increased so does seem like he is being diuresed. He does feel that his breathing is improved though he still gets short of breath and some chest tightness with exertion. He'll be going for pharmacological stress test today. -Appreciate cardiology recommendations -Appreciate pulmonology recommendations -TRC nebs -Daily weights, I's and O's -Furosemide 40 mg IV daily. Consider switching to PO based on cardiology recommendations -Pred taper per pulm -CPAP #Nonsustained ventricular tachycardia: Patient has had many episodes of NSVT including a 11 beat run. He was asymptomatic. Electrolytes have been followed and are normal. He will potentially be going for pharmacological stress test today. He may have some underlying coronary disease. -Continue to monitor -Appreciate cardiology recommendations #Hypernatremia: Resolved. -Continue to monitor #Chronic medical problems: -Continue home atorvastatin, docusate, rivaroxaban, losartan, omeprazole, metoprolol DVT prophylaxis with rivaroxaban Heart healthy diet Full code Problem List: 1. Dyspnea Pain Ratin Pain Location: no pain Pain Goal: Remain pain free Pain Plan: see a/p Tomorrow's Labs & Rationales: bep
[2017-07-06] MEDS ORDERED: BETAPACE80 MG PO (07:55)
--- NOTE | 2017-07-06 10:17 | PN- Cardiology ---
Subjective Subjective: * Myles feels much improved without chest discomfort, shortness of breath, lightheadedness or palpitations. He is unaware of his PVC's. * Patient still has ventricular ectopy including couplets and triplets. Objective Vital Signs and I&Os Vital Signs Date Time Temp Pulse Resp B/P B/P Pulse O2 O2 Flow FiO2 Mean Ox Delivery Rate 07/06 0710 172/84 07/06 0600 97.9 80 18 172/84 98 07/06 0129 67 96 07/06 0000 95 Nasal 2.0L Cannula 07/05 1926 97.7 82 20 102/60 95 Room Air Intake & Output 07/06 1600 07/06 0800 07/06 0000 07/05 1600 07/05 0800 07/05 0000 Intake Total 460 750 200 Output Total 550 Balance 460 200 200 Intake, IV 10 Intake, Oral 450 750 200 Number 0 1 Bowel Movements Output, Urine 550 Patient 211 lb Weight Weight Bed scale Measurement Method Physical Exam: General: WD/overweight male in NAD; alert and oriented x 3 Neck: no JVD Heart: RRR with ectopy Lungs: clear bilaterally Extremities: no edema Assessment/Plan Assessment/Plan * This patient has undergone a V-tach ablation about 10 years ago. His VT subsequently came back but not to this degree. These copious episodes of VT may be causes his CHF although coronary artery disease cannot be excluded as the cause of both his worsening VT and CHF. We will risk stratify this patient with a pharmacologic stress test today and depending on the results consider a cardiac catheterization. * Increase Sotolol to 80mg BID. Continue Mexilitine 150mg TID. Continue telemetry? Yes
--- NOTE | 2017-07-06 13:33 | NUCLEAR MEDICINE REPORT ---
PERSANTINE STRESS AND RESTING SPECT MYOCARDIAL PERFUSION IMAGING STUDY WITH GATED SPECT IMAGES: CLINICAL INDICATION: Chest pain. PROCEDURE: Regional myocardial perfusion was assessed using a 2 day protocol. Stress images were obtained on 07/06/2017 following the intravenous administration of 29.8 mCi Tc 99m Myoview. Stress consisted of 55 mg Persantine given intravenously. Following the sestamibi injection, no aminophylline was given intravenously. Rest images were obtained 07/05/2017 following the intravenous administration of 37.0 mCi Technetium 99m Myoview. Single photon emission tomographic (SPECT) images were obtained. SPECT images were acquired in a 64 x 64 matrix of 64 projections over 180 degrees. These were reconstructed into standard short axis, horizontal and vertical long axis cardiac projections. FINDINGS: The post stress images show the left ventricular chamber to be top normal in size. There is a small region of mildly decreased activity that involves the basal and mid anterior wall and the adjacent mid anterolateral wall. The activity in the other kurtz appears normal. The rest images are not significantly changed from the post stress images. The images were obtained using a gated SPECT technique, which permits visualization of wall motion and calculation of the left ventricular ejection fraction. Left ventricular chamber is top normal in size. There is moderately severe diffuse left ventricular hypokinesis. This is slightly more severe diffusely in the inferior wall. The calculated left ventricular ejection fraction is 27% on the stress study. No previous study is available for comparison. IMPRESSION: A small fixed perfusion abnormality is present that involves the basal and mid segments of the anterior wall and the adjacent mid anterolateral wall. No reversible perfusion abnormalities are present. The left ventricular chamber appears top normal in size an shows diffuse hypokinesis which is moderately severe diffusely and markedly severe in the inferior wall.
[2017-07-06 14:58] VITALS: BP 138/80
[2017-07-06 15:47] VITALS: BP 110/58
--- NOTE | 2017-07-06 17:33 | RADIOLOGY REPORT ---
EXAMINATION: CR PORTABLE CHEST CLINICAL INFORMATION: Shortness of breath. Rule out CHF exacerbation. COMPARISON: Several prior chest x-rays, most recent of which is dated 07/04/2017. TECHNIQUE: Portable semierect view of the chest was obtained. FINDINGS: The cardiomediastinal silhouette is enlarged. Calcification and ectasia of the aorta is again noted. There is continued opacity in the left lung base with obscuration of the left hemidiaphragm, consistent with a persistent moderate size left-sided pleural effusion and associated lung parenchymal consolidation or atelectasis, similar to the prior exam, allowing for differences in technique. There is minimal linear opacity in the right lung base, unchanged, most consistent with subsegmental atelectasis. The previously described nodular opacity in the left midlung is poorly appreciated on this exam. Multilevel degenerative changes as seen in the spine. Some tonya is seen in the soft tissues of the right neck. EKG leads overlie the chest. IMPRESSION: 1. No significant change in moderate size left-sided pleural effusion and associated left basilar lung parenchymal consolidation or atelectasis. 2. No significant change in subsegmental atelectasis in the right lung base. 3. Previously described nodular opacity in the left midlung is not appreciated on this exam. Continued attention to the left perihilar region is recommended on follow-up exams.
[2017-07-06 22:08] VITALS: BP 146/84
[2017-07-07 06:43] VITALS: BP 166/102
--- NOTE | 2017-07-07 07:05 | PN- Housestaff ---
See Addendum Subjective Follow-up For: NSVT Tele-Events Since Last Visit: Some NSVT, less than yesterday. 70-80 Subjective: No overnight events. Feels well this morning, just a mild headache. Review of Systems Constitutional: Reports: no symptoms. EENTM: Reports: no symptoms. Cardiovascular: Reports: no symptoms. Respiratory: Reports: no symptoms. Gastrointestinal: Reports: no symptoms. Genitourinary: Reports: no symptoms. Musculoskeletal: Reports: no symptoms. Skin: Reports: no symptoms. Neurological/Psychological: Reports: see HPI. Hematologic/Endocrine: Reports: no symptoms. Immunologic/Allergic: Reports: no symptoms. Objective Last 24 Hrs of Vital Signs/I&O Vital Signs Date Time Temp Pulse Resp B/P B/P Pulse O2 O2 Flow FiO2 Mean Ox Delivery Rate 07/07 0701 166/102 07/07 0643 97.9 68 20 166/102 94 Room Air 07/07 0104 80 99 07/06 2208 97.8 78 20 146/84 94 Room Air 07/06 1600 94 Room Air 07/06 1547 97.8 70 18 110/58 94 07/06 1458 70 138/80 07/06 0800 96 Room Air 07/06 0710 172/84 Intake & Output 07/07 0800 07/07 0000 07/06 1600 Intake Total 450 780 560 Output Total Balance 450 780 560 Intake, Oral 450 780 560 Number 1 Bowel Movements Physical Exam General Appearance: Alert, Oriented X3, Cooperative, No Acute Distress Cardiovascular: Regular Rate, Normal S1, Normal S2 Lungs: mild crackles Abdomen: Normal Bowel Sounds, Soft, No Tenderness Extremities: No Edema Current Medications: Current Medications Sig/Dimitris Start time Last Medication Dose Route Stop Time Status Admin Acetaminophen 650 MG .STK-MED ONE 07/06 1103 DC PO 07/06 1104 Acetaminophen 650 MG Q6P PRN 07/01 1715 AC 07/06 PO 1113 Albuterol Sulfate 3 ML Q4-PRN PRN 07/01 1900 AC INH Atorvastatin Calcium 80 MG 1700 07/02 1700 AC 07/06 PO 1717 Dipyridamole 55 MG ONE 07/06 0000 DC Dextrose/Water 29 ML IV 07/06 2359 Docusate Sodium 100 MG DAILY PRN 07/02 1030 AC 07/02 PO 1021 Furosemide 40 MG DAILY 07/07 1000 AC PO Furosemide 40 MG DAILY 07/02 1000 DC 07/06 IV 1113 Insulin Aspart 0 TIDAC 07/02 0800 AC 07/06 SC 1717 Losartan Potassium 50 MG DAILY 07/02 1000 AC 07/07 PO 0701 Mexiletine HCl 150 MG Q8 07/04 2200 AC 07/07 PO 0611 Omeprazole 40 MG DAILY AC 07/03 0816 AC 07/07 PO 0611 Polyethylene Glycol 17 GM DAILY 07/03 1345 AC 07/04 PO 0843 Prednisone 10 MG DAILY 07/10 1000 AC PO 07/11 1001 Prednisone 20 MG DAILY 07/08 1000 AC PO 07/09 1001 Prednisone 30 MG DAILY 07/06 1000 AC 07/06 PO 07/07 1001 1112 Rivaroxaban 20 MG DAILY 07/02 1000 AC 07/06 PO 1112 Sotalol HCl 80 MG BID 07/06 2200 AC 07/06 PO 2317 Sotalol HCl 40 MG BID 07/04 2200 DC 07/06 PO 1112 Assessment/Plan Assessment: Mr. Davis is a 77-year-old male with past medical history of atrial fibrillation on rivaroxaban followed by Dr. Lyle, hypertension, coronary artery disease status post stents 10 years ago, COPD followed by Dr. Huerta, LUCY with CPAP, diabetes mellitus, severe pulmonary hypertension, and prostate cancer who presents with shortness of breath. Problem List: 1. COPD/CHF 2. Left-sided pleural effusion 3. Acute hypoxic respiratory failure 4. Hypernatremia 5. Nonsustained ventricular tachycardia #COPD/CHF: Patient has a history of COPD, coronary artery disease, and atrial fibrillation. His dyspnea may be related to a COPD exacerbation versus decompensated heart failure versus upper respiratory infection. He does have a pleural effusion on x-ray and perhaps some increased pulmonary vascular congestion. Well's score was 0 and he was on anticoagulation. EKG and troponins severe left atrial enlargement and moderate to severe pulmonary hypertension. CT shows small left-sided pleural effusion, partial collapse consolidation of the left lower lobe, and extensive emphysematous disease. CTA revealed no evidence of PE, right atrial enlargement read with reflux of contrast in the hepatic veins is adjusting elevated right heart pressures that are likely chronic, and in moderate left-sided pleural effusion with left basilar atelectasis. His symptoms have mostly resolved. Ins and outs and daily weights seem inaccurate but his BUN has increased so does seem like he is being diuresed. He does feel that his breathing is improved though he still gets short of breath and some chest tightness with exertion. He had a pharmacological stress test yesterday. I did speak to Dr. Huerta who thinks that the left-sided pleural effusion is improving and does not need to be tapped. -Appreciate cardiology recommendations -Appreciate pulmonology recommendations -TRC nebs -Daily weights, I's and O's -Furosemide 40 mg PO -Pred taper -CPAP #Nonsustained ventricular tachycardia: Patient has had many episodes of NSVT. It seems like they were less frequent last night. He was asymptomatic. Electrolytes have been followed and are normal. He did have a pharmacological stress test yesterday that showed hypokinesis. -Continue to monitor -Continue sotalol 80 mg twice a day -Continue mexiletine 150mg Q8H -Appreciate cardiology recommendations #Hypernatremia: Resolved. -Continue to monitor #Chronic medical problems: -Continue home atorvastatin, docusate, rivaroxaban, losartan, omeprazole, metoprolol -Increase losartan to 50 mg twice a day for AM hypertension DVT prophylaxis with rivaroxaban Heart healthy diet Full code Problem List: 1. Non-sustained ventricular tachycardia Pain Ratin Pain Location: no Pain Goal: Remain pain free Pain Plan: see a/p Tomorrow's Labs & Rationales: none
--- NOTE | 2017-07-07 08:07 | PN- Student ---
Subjective Subjective: Tele events: NSVT 70 - 80 No overnight events.This morning around 6 am he reportedly had a headache limited to the right frontal area.Was given 2 tylenol and reports he feels fine and the headache has resolved.Patient is a little reluctant to go home and doesn 't want to wagoner his discharge. Review of Systems Review of Systems Constitutional: Reports: no symptoms. EENTM: Denies: visual changes. Cardiovascular: Denies: chest pain, palpitations. Respiratory: Denies: short of breath. GI: Denies: abdominal pain, constipation, changes in stool. Genitourinary: Denies: dysuria, hesitation. Musculoskeletal: Reports: no symptoms. Neurological/Psychological: Reports: headache. Objective Objective: Vital Signs Date Time Temp Pulse Resp B/P B/P Pulse O2 O2 Flow FiO2 Mean Ox Delivery Rate 07/07 0701 166/102 07/07 0643 97.9 68 20 166/102 94 Room Air 07/07 0104 80 99 Intake & Output 07/07 1600 07/07 0800 07/07 0000 Intake Total 450 780 Output Total Balance 450 780 Intake, Oral 450 780 Patient 208 lb Weight Weight Chair scale Measurement Method Physical Exam: Gen: Alert,oriented x3 ,cooperative,No acute distress HEENT:PERRLA,no jaundice CVS:Irregular Resp:lungs clear to ascultation Abdomen: normal bowel sounds all 4 quadrants,soft,non tender Current Medications Sig/Dimitris Start time Last Medication Dose Route Stop Time Status Admin Acetaminophen 650 MG .STK-MED ONE 07/06 1103 DC PO 07/06 1104 Acetaminophen 650 MG Q6P PRN 07/01 1715 AC 07/07 PO 0706 Albuterol Sulfate 3 ML Q4-PRN PRN 07/01 1900 AC INH Atorvastatin Calcium 80 MG 1700 07/02 1700 AC 07/06 PO 1717 Dipyridamole 55 MG ONE 07/06 0000 DC Dextrose/Water 29 ML IV 07/06 2359 Docusate Sodium 100 MG DAILY PRN 07/02 1030 AC 07/02 PO 1021 Furosemide 40 MG DAILY 07/07 1000 AC PO Insulin Aspart 0 TIDAC 07/02 0800 AC 07/06 SC 1717 Losartan Potassium 50 MG DAILY 07/02 1000 AC 07/07 PO 0701 Mexiletine HCl 150 MG Q8 07/04 2200 AC 07/07 PO 0611 Omeprazole 40 MG DAILY AC 07/03 0816 AC 07/07 PO 0611 Polyethylene Glycol 17 GM DAILY 07/03 1345 AC 07/04 PO 0843 Prednisone 10 MG DAILY 07/10 1000 AC PO 07/11 1001 Prednisone 20 MG DAILY 07/08 1000 AC PO 07/09 1001 Prednisone 30 MG DAILY 07/06 1000 AC 07/06 PO 07/07 1001 1112 Rivaroxaban 20 MG DAILY 07/02 1000 AC 07/06 PO 1112 Sotalol HCl 80 MG BID 07/06 2200 AC 07/06 PO 2317 Sotalol HCl 40 MG BID 07/04 2200 DC 07/06 PO 1112 Results Results: Laboratory Tests 07/07/17 0653: Anion Gap 16, Estimated GFR > 60, BUN/Creatinine Ratio 27.8 H 07/06/17 0617: Anion Gap 17 H, Estimated GFR > 60, BUN/Creatinine Ratio 30.0 H 07/05/17 0645: Anion Gap 17 H, Estimated GFR > 60, BUN/Creatinine Ratio 28.8 H, CBC w Diff NO MAN DIFF REQ, RBC 5.07, MCV 87.3, MCH 28.1, RDW 15.7 H, MPV 9.6, Gran % 82.2 H , Lymphocytes % 8.8 L, Monocytes % 8.7, Eosinophils % 0, Basophils % 0.3, Absolute Granulocytes 11.0 H, Absolute Lymphocytes 1.2, Absolute Monocytes 1.2 H, Absolute Eosinophils 0, Absolute Basophils 0, PUBS MCHC 32.3 L Persantine Stress Test: A small fixed perfusion abnormality is present that involves the basal and mid segments of the anterior wall and the adjacent mid anterolateral wall. No reversible perfusion abnormalities are present. The left ventricular chamber appears top normal in size an shows diffuse hypokinesis which is moderately severe diffusely and markedly severe in the inferior wall. Chest Xray: 1. No significant change in moderate size left-sided pleural effusion and associated left basilar lung parenchymal consolidation or atelectasis. 2. No significant change in subsegmental atelectasis in the right lung base. 3. Previously described nodular opacity in the left midlung is not appreciated on this exam. Continued attention to the left perihilar region is recommended on follow-up exams. Assessment/Plan Assessment: Myles Davis is a 77-year-old male with past medical history of atrial fibrillation on rivaroxaban followed by Dr. Lyle, hypertension, coronary artery disease status post stents 10 years ago, COPD followed by Dr. Huerta, LUCY with CPAP, diabetes mellitus, and prostate cancer who presents with shortness of breath.Admitted to telemetry and treated for the followin)Nonsustained Ventricular Tachycardia 2)Left sided pleural effusion Plan: NVST: Patient has had episodes of NSVT but better rate control. He was asymptomatic. Electrolytes have been followed and are normal.Awaiting cardiology's reccomendations as to if catherization is necessary or if patient can be discharged. -Continue to monitor -maybe be a candidate for cardiac catherization based on stress test results. -Appreciate cardiology recommendations Left sided pleural effusion: Chest Xray revealed no significant change in moderate size left-sided pleural effusion and associated left basilar lung parenchymal consolidation or atelectasis.Previously described nodular opacity in the left midlung is not appreciated on this exam. Continued attention to the left perihilar region is recommended on follow-up exams.Pulmonary was consulted and based on imaging though that his effusion was getting better and wasn't worrisome and they opted to not treat it. -appreciate pulmonary reccomendations Chronic medical problems: -Continue home atorvastatin, docusate, rivaroxaban, losartan, omeprazole, metoprolol DVT prophylaxis with rivaroxaban Heart healthy diet Full code
--- NOTE | 2017-07-07 09:19 | RADIOLOGY REPORT ---
EXAMINATION: XR CHEST CLINICAL INFORMATION: Effusion. COMPARISON: Chest done on 07/06/2017. TECHNIQUE: 2 views of the chest were obtained. FINDINGS: Persistent stable mild blunting of left lateral, posterior CP angle is noted, may represent small effusion versus thickening or combination thereof. The cardiomediastinal silhouette is mildly enlarged. The aerated lung daniel are clear bilaterally. Multilevel degenerative spondylosis is seen. IMPRESSION: Persistent stable mild blunting of left lateral, and posterior CP angles, may represent small effusion versus thickening or combination thereof.
[2017-07-07 09:31] VITALS: BP 140/90
--- NOTE | 2017-07-07 13:10 | Discharge Summary ---
Visit Information Visit Dates Admission Date: 07/01/17 Discharge Date: 07/08/17 Hospital Course Course Attending Physician: Andrey Licona MD Primary Care Physician: Richard CARDONABoston Lying-In Hospital Course: Mr. Davis is a 77-year-old male with past medical history of atrial fibrillation on rivaroxaban followed by Dr. Lyle, hypertension, coronary artery disease status post stents 10 years ago, COPD followed by Dr. Huerta, LUCY with CPAP, diabetes mellitus, and prostate cancer who presented with shortness of breath. On presentation, vital signs were T 96.8, HR 90, RR 24, BP 135/79, saturating 88 % on room air. Laboratories were significant for white blood cell count 8.4, 78.3% granulocytes, hemoglobin 14.1, normal BEP, negative LFTs, troponins less than 0.01, and BNP 4480. Chest x-ray showed a small left-sided pleural effusion and nonspecific left lower lobar airspace disease. He was treated with furosemide 40 mg IV in the emergency room. He was be admitted to telemetry and treated for the following problems: 1. Acute hypoxic respiratory failure 2. Left-sided pleural effusion 3. COPD/CHF 4. Hypernatremia 5. Nonsustained ventricular tachycardia #Acute hypoxic respiratory failure: Patient has a history of COPD, coronary artery disease, and atrial fibrillation. Well's score was 0 and he was on anticoagulation. EKG and troponins 2 negative. Initial ABG showed respiratory alkalosis. His dyspnea was likely related to a combination of COPD exacerbation and decompensated heart failure. He did have a pleural effusion on x-ray and perhaps some increased pulmonary vascular congestion. I did speak to Dr. Huerta who hought that the left-sided pleural effusion was improving and did not need to be tapped. TTE revealed EF 60% and severe left atrial enlargement and moderate to severe pulmonary hypertension. CT showed small left-sided pleural effusion, partial collapse consolidation of the left lower lobe, and extensive emphysematous disease. CTA revealed no evidence of PE, right atrial enlargement read with reflux of contrast in the hepatic veins is adjusting elevated right heart pressures that are likely chronic, and moderate left-sided pleural effusion with left basilar atelectasis. Cardiology was consulted. He was diuresed and treated with steroids and azithromycin. His respiratory symptoms improved and he is now stable for discharge. He should continue to use CPAP at home and follow-up with cardiology and pulmonology. #Nonsustained ventricular tachycardia: The patient was on telemetry monitoring and had many episodes of nonsustained ventricular tachycardia. Cardiology was consulted and noted that the patient had a history of NSVT and had an ablation 10 years ago for it. The patient was started on sotalol and mexiletine per cardiology recommendations. He also had a pharmacological stress test that showed hypokinesis. Cardiology recommended that he should follow up for cardiac cath. He was started on Imdur for treatment of possible angina think he should continue on sotalol and mexelitine. #Hypernatremia: The patient was noted to be hypernatremic on routine electrolyte laboratory analysis. It was mild and he was asymptomatic. It resolved spontaneously. #Chronic medical problems: The following home medications were continued: atorvastatin, docusate, rivaroxaban, losartan, omeprazole, metoprolol. The patient was noticed to have high blood pressures in the morning and so the lorazepam was increased to 50 mg twice a day. Allergies: Coded Allergies: No Known Allergies (12/22/15) Disposition Summary Disposition Principal Diagnosis: Acute hypoxic respiratory failure Additional Diagnosis: 2. Left-sided pleural effusion 3. COPD/CHF 4. Hypernatremia 5. Nonsustained ventricular tachycardia Discharge Disposition: home or self care Discharge Instructions General Discharge Information Code Status: Full Code Patient's Diet: heart healthy Patient's Activity: as tolerated Follow-Up Instructions/Appts: Please take all medications as directed. Please follow-up with primary care. Please follow-up with Dr. Huerta. Please follow-up with cardiology for cardiac cath. Medications at Discharge Discharge Medications: Stop taking the following medications: Metoprolol Succinate (Metoprolol Succinate) 50 MG TAB.ER.24H ORAL TWICE DAILY Qty = 180 Furosemide (Furosemide) 20 MG TABLET ORAL DAILY Qty = 90 Losartan Potassium (Cozaar) 50 MG TABLET ORAL DAILY Continue taking these medications: Simvastatin (Simvastatin*) 80 MG TABLET 1 Tablet ORAL DAILY Qty = 30 Comments: Last Taken: 07/07/17 Time: 4:30 PM Metformin HCl (Metformin HCl) 500 MG TABLET 1 Tablet ORAL DAILY Qty = 60 Comments: Last Taken: NOT GIVEN IN HOSPITAL Time: Rivaroxaban (Xarelto) 20 MG TABLET 1 Tablet ORAL Every night Instructions: with food Comments: Last Taken: 07/08/17 Time: 10:20 AM Start taking the following new medications: Mexiletine HCl (Mexiletine HCl) 150 MG CAPSULE 150 Milligram ORAL EVERY 8 HOURS Qty = 90 No Refills Instructions: . Comments: Last Taken: 07/08/17 Time: 6:30 AM Isosorbide Mononitrate (Isosorbide Mononitrate ER) 30 MG TAB.ER.24H 1 Tablet ORAL DAILY Qty = 30 No Refills Instructions: . Comments: Last Taken: 07/08/17 Time: 10:20 AM Sotalol (Betapace) 80 MG TABLET 80 Milligram ORAL TWICE DAILY Qty = 60 No Refills Instructions: . Comments: Last Taken: 07/08/17 Time: 10:20 AM Losartan Potassium (Losartan Potassium) 50 MG TABLET 50 Milligram ORAL TWICE DAILY Qty = 60 No Refills Instructions: . Comments: Last Taken: 07/08/17 Time: 10:20 AM Furosemide (Lasix) 40 MG TABLET 40 Milligram ORAL DAILY Qty = 30 No Refills Instructions: . Comments: Last Taken: 07/08/17 Time: 10:20 AM Docusate Sodium (Docusate Sodium) 100 MG CAPSULE 100 Milligram ORAL DAILY as needed for CONSTIPATION Qty = 30 No Refills Instructions: . Comments: Last Taken: NOT GIVEN IN HOSPITAL Time: Prednisone (Prednisone) 10 MG TABLET 0 ORAL DAILY Qty = 4 No Refills Instructions: Please take: 2 pills on 07/09/17 1 pill on 07/10 and 07/11/17 . Comments: Please take: 2 pills on 07/08/17 1 pill on 07/09 and 07/10/17 Last Taken: 07/08/17 Time: 10:20 AM Copies To: Deanna CARDONA,Eleazar Amin; Richard CARDONA,M. Shan; Valdo CARDONA PHD,Eleazar Cooper Attending MD Review Statement Documenting Attending: Andrey Licona MD Other Findings: agree with the above dc plan. Please see my separate attending note for more details.
--- NOTE | 2017-07-07 13:33 | IV DIPYRIDAMOLE NUCLEAR STRESS ---
Clinical Diagnosis: Chest Pain Hide Dropper: Kath Lazar IV DIPYRIDAMOLE INFUSED: 55 mg IV AMINOPHYLLINE INFUSED: 0 mg PATIENT WEIGHT: 210 lbs INTERPRETATION: The patient's baseline EKG showed atrial fibrillation with intraventricular conduction delay at 75 BPM. Baseline B/P 170/90. The patient received 55 mg of dipyridamole infused intravenously over a 4 minute period. TC99M Myoview was injected after dipyridamole infusion. The patient tolerated the infusion well. There were no EKG changes seen following pharmacologic infusion. Arrhythmias: Frequent unifocal premature ventricular contractions including couplets. IMPRESSION: The test was supervised by the interpreting Roll Icer Machine, who was in attendance during the entire test. No EKG evidence of stress induced myocardial ischemia. See separately dictated Nuclear Report.
[2017-07-07] MEDS ORDERED: BETAPACE80 MG PO (14:07)
[2017-07-07] MEDS ORDERED: LOSARTAN POTASS50 M1 PO (14:07)
[2017-07-07] MEDS ORDERED: LASIX40 M1 PO (14:07)
[2017-07-07] MEDS ORDERED: MEXILETINE HCL150 M1 PO (14:07)
--- NOTE | 2017-07-07 14:09 | Patient Discharge Instructions ---
Discharge Instructions General Discharge Information You were seen/treated for: COPD, congestive heart failure, nonsustained ventricular tachycardia. Watch for these problems: Chest pain, shortness of breath, fever Special Instructions: Please take all medications as directed. Please follow-up with cardiology FOR CARDIAC CATH, pulmonology, and primary care. Diet Continue normal diet: No Recommended Diet: Heart Healthy Activity Full Activity/No Limits: Yes Acute Coronary Syndrome Inclusion Criteria At DC or during hospital stay patient has or had the following: ACS DIAGNOSIS No Discharge Core Measures Meds if any: Prescribed or Continued at Discharge Meds if any: NOT Prescribed or Continued at Discharge Congestive Heart Failure Inclusion Criteria At DC or during hospital stay patient has or had the following: CHF DIAGNOSIS Yes Discharge Core Measures Meds if any: Prescribed or Continued at Discharge MANUELITO/ARB for EF <40% Yes Meds if any: NOT Prescribed or Continued at Discharge Cerebrovascular accident Inclusion Criteria At DC or during hospital stay patient has or had the following: CVA/TIA Diagnosis No Discharge Core Measures Meds if any: Prescribed or Continued at Discharge Meds if any: NOT Prescribed or Continued at Discharge Venous thromboembolism Inclusion Criteria VTE Diagnosis No VTE Type NONE VTE Confirmed by (Test) NONE Discharge Core Measures - Per Current guidelines, there needs to be overlap - treatment for the first 5 days of Warfarin therapy. - If discharged on Warfarin prior to 5 days of - overlap therapy, the patient will need to be - assessed for post discharge needs including - *Post discharge parental anticoagulation - *Warfarin and/or parental anticoagulation education - *Follow up date to check INR post discharge At least 5 days overlap therapy as Inpatient No Meds if any: Prescribed or Continued at Discharge Note: Overlap Therapy is Warfarin and Anticoagulant Meds if any: NOT Prescribed or Continued at Discharge
[2017-07-07] MEDS ORDERED: PREDNISONE10 M2 PO (14:15)
[2017-07-07 14:40] VITALS: BP 136/80
--- NOTE | 2017-07-07 17:25 | PN- Cardiology ---
Subjective Subjective: * Myles continues to report some mild precordial chest pressure. No palpitations. * Frequent ventricular ectopy including triplets. * Breathing is improved with a trace pleural effusion. Objective Vital Signs and I&Os Vital Signs Date Time Temp Pulse Resp B/P B/P Pulse O2 O2 Flow FiO2 Mean Ox Delivery Rate 07/07 1440 93 Room Air Room Air 07/07 1440 97.8 72 20 136/80 93 Nasal Cannula 07/07 1031 70 140/90 07/07 0931 97.5 73 140/90 93 07/07 0701 166/102 07/07 0643 97.9 68 20 166/102 94 Room Air 07/07 0104 80 99 07/06 2208 97.8 78 20 146/84 94 Room Air Intake & Output 07/07 1600 07/07 0800 07/07 0000 07/06 1600 07/06 0800 07/06 0000 Intake Total 600 450 780 560 460 Output Total 750 Balance -150 450 780 560 460 Intake, IV 10 Intake, Oral 600 450 780 560 450 Number 1 1 0 Bowel Movements Output, Urine 750 Patient 208 lb Weight Weight Chair scale Measurement Method Physical Exam: General: WD/overweight male in NAD; alert and oriented x 3 Neck: no JVD Heart: RRR with ectopy Lungs: clear bilaterally Extremities: no edema Assessment/Plan Assessment/Plan * This patient has undergone a V-tach ablation about 10 years ago. His VT subsequently came back but not to this degree. These copious episodes of VT may be causes his CHF although coronary artery disease cannot be excluded as the cause of both his worsening VT and CHF. He does have new regional wall motion abnormalities on his stress test although there was no reported ischemia. In consideration of his worsening VT, chest pressure and new regional wall motion abnormalities we will pursue a cardiac catheterization early next week. The patient can be discharged to home tomorrow in anticipation of this procedure. His EF is 50% and he is not a candidate for an AICD at this time. The EF on his stress test is inaccurate due to the averaging of partial contractions from PVC' s. We will begin Imdur 30mg for treatment of possible angina. * Continue Sotolol to 80mg BID. Continue Mexilitine 150mg TID. These drugs have helped his VT although it is not resolved. Dr. San does not feel that this patient is a candidate for any repeat VT ablative procedures. Continue telemetry? Yes
[2017-07-07 21:43] VITALS: BP 140/90
[2017-07-08 06:44] VITALS: BP 164/74
--- NOTE | 2017-07-08 09:00 | PN- Housestaff ---
Hilario Schuster 07/08/17 0859: Subjective Follow-up For: pvc CHF EXACERBATION Tele-Events Since Last Visit: Multiple PVCswith afib Subjective: I have seen and examined the patient.stable to go home and outpatient cardiac cath with dr lyle Review of Systems Constitutional: Reports: see HPI. Objective Last 24 Hrs of Vital Signs/I&O Vital Signs Date Time Temp Pulse Resp B/P B/P Pulse O2 O2 Flow FiO2 Mean Ox Delivery Rate 07/08 1020 68 164/74 07/08 1019 68 164/74 07/08 0800 95 Room Air 07/08 0644 97.6 65 18 164/74 95 07/07 2143 98.3 69 18 140/90 94 07/07 2111 76 114/82 07/07 1440 93 Room Air Room Air 07/07 1440 97.8 72 20 136/80 93 Nasal Cannula Intake & Output 07/08 1600 07/08 0800 07/08 0000 Intake Total 110 120 Output Total Balance 110 120 Intake, IV 10 Intake, Oral 100 120 Physical Exam General Appearance: Alert, Oriented X3, Cooperative Other Physical Findings: Cardiovascular: irrigular Rate, Normal S1, Normal S2 Lungs: mild crackles in right base of the lung Abdomen: Normal Bowel Sounds, Soft, No Tenderness Extremities: mild Edema Current Medications: Current Medications Sig/Dimitris Start time Last Medication Dose Route Stop Time Status Admin Acetaminophen 650 MG Q6P PRN 07/01 1715 07/07 PO 0706 Albuterol Sulfate 3 ML Q4-PRN PRN 07/01 1900 AC INH Atorvastatin Calcium 80 MG 1700 07/02 1700 07/07 PO 1628 Docusate Sodium 100 MG DAILY PRN 07/02 1030 AC 07/02 PO 1021 Furosemide 40 MG DAILY 07/07 1000 AC 07/08 PO 1020 Insulin Aspart 0 TIDAC 07/02 0800 07/07 SC 1631 Isosorbide 30 MG DAILY 07/08 1000 AC 07/08 Mononitrate PO 1019 Losartan Potassium 50 MG BID 07/07 1000 AC 07/08 PO 1020 Mexiletine HCl 150 MG Q8 07/04 2200 AC 07/08 PO 1306 Omeprazole 40 MG DAILY AC 07/03 0816 AC 07/08 PO 0634 Polyethylene Glycol 17 GM DAILY 07/03 1345 AC 07/07 PO 0915 Prednisone 10 MG DAILY 07/10 1000 AC PO 07/11 1001 Prednisone 20 MG DAILY 07/08 1000 AC 07/08 PO 07/09 1001 1020 Rivaroxaban 20 MG DAILY 07/02 1000 AC 07/08 PO 1020 Sotalol HCl 80 MG BID 07/06 2200 AC 07/08 PO 1019 Last 24 Hrs of Lab/Reji Results Last 24 Hrs of Labs/Mics: Laboratory Tests 07/08/17 0700: Anion Gap 15, Estimated GFR > 60, BUN/Creatinine Ratio 25.6 H Assessment/Plan Assessment: Mr. Davis is a 77-year-old male with past medical history of atrial fibrillation on rivaroxaban followed by Dr. Lyle, hypertension, coronary artery disease status post stents 10 years ago, COPD followed by Dr. Huerta, LUCY with CPAP, diabetes mellitus, severe pulmonary hypertension, and prostate cancer who presents with shortness of breath. Problem List: 1. COPD/CHF 2. Left-sided pleural effusion 3. Acute hypoxic respiratory failure 4. Hypernatremia 5. Nonsustained ventricular tachycardia #COPD/CHF: Patient has a history of COPD, coronary artery disease, and atrial fibrillation. His dyspnea may be related to a COPD exacerbation versus decompensated heart failure versus upper respiratory infection. He does have a pleural effusion on x-ray and perhaps some increased pulmonary vascular congestion. Well's score was 0 and he was on anticoagulation. EKG and troponins severe left atrial enlargement and moderate to severe pulmonary hypertension. CT shows small left-sided pleural effusion, partial collapse consolidation of the left lower lobe, and extensive emphysematous disease. CTA revealed no evidence of PE, right atrial enlargement read with reflux of contrast in the hepatic veins is adjusting elevated right heart pressures that are likely chronic, and in moderate left-sided pleural effusion with left basilar atelectasis. His symptoms have mostly resolved. Ins and outs and daily weights seem inaccurate but his BUN has increased so does seem like he is being diuresed. He does feel that his breathing is improved though he still gets short of breath and some chest tightness with exertion. He had a pharmacological stress test yesterday. I did speak to Dr. Huerta who thinks that the left-sided pleural effusion is improving and does not need to be tapped. -Appreciate cardiology recommendations -Appreciate pulmonology recommendations -TR nebs -Daily weights, I's and O's -Furosemide 40 mg PO -Pred taper -CPAP -dc for cardiac cath outpatient setting #Nonsustained ventricular tachycardia: Patient has had many episodes of NSVT. It seems like they were less frequent last night. He was asymptomatic. Electrolytes have been followed and are normal. He did have a pharmacological stress test yesterday that showed hypokinesis. -Continue to monitor -Continue sotalol 80 mg twice a day -Continue mexiletine 150mg Q8H -Appreciate cardiology recommendations #Hypernatremia: Resolved. -Continue to monitor #Chronic medical problems: -Continue home atorvastatin, docusate, rivaroxaban, losartan, omeprazole, metoprolol -Increase losartan to 50 mg twice a day for AM hypertension DVT prophylaxis with rivaroxaban Heart healthy diet Full code Problem List: 1. Pleural effusion 2. CHF exacerbation Pain Ratin Pain Location: no pain Pain Goal: Pain 4 or less Pain Plan: same Tomorrow's Labs & Rationales: kari BarreraRashid gonzalezjoaquim 07/08/17 1600: Attending MD Review Statement Attending Statement Attending MD Statement: examined this patient, discuss w/resident/PA/[employer], agreed w/resident/PA/[employer] KEEPER, reviewed EMR data (avail), discussed with nursing Attending Assessment/Plan: Pt being dced home today and will possibly go for cardiac cath on monday . he is going [place] with dr lyle office for scheduling information. Pt was instructed about the medication changes prior to discharge . d/w pt the care plan.
[2017-07-08 10:20] VITALS: BP 164/74
[2017-07-08] MEDS ORDERED: PREDNISONE10 M2 PO ×2 (10:26→11:58)
[2017-07-08] MEDS ORDERED: ISOSORBIDE MONO30 M1 PO ×2 (10:30→11:58)
[2017-07-08] MEDS ORDERED: DOCUSATE SODIU100 M3 PO ×2 (10:30→11:58)
[2017-07-08] MEDS ORDERED: LOSARTAN POTASS50 M1 PO (11:58)
[2017-07-08] MEDS ORDERED: BETAPACE80 MG PO (11:58)
[2017-07-08] MEDS ORDERED: MEXILETINE HCL150 M1 PO (11:58)
[2017-07-08] MEDS ORDERED: LASIX40 M1 PO (11:58)
== END 2017-07-08 13:45 | disposition home health service (06) | DRG 291 ==
LOC: ERH 11:49 → ERHI 15:17 → 1NO 15:17 → ENRESERV 15:59 → ENTRNSPT 18:53 → EDTRNSPT 18:57 → EDTRNSPTSTS 18:57 → 1NO 19:08 → CMPTRNSPT 19:19 → 1NO 07-03 15:11 → ENPENDDIS 07-08 11:55 → 1NO 07-08 13:45
PROVIDERS: Internal Medicine; Physician Assistant Medical; Radiology Vascular & Interventional Radiology; Student in an Organized Health Care Education/Training Program
PROC: 5A09357 Assistance with Respiratory Ventilation, Less than 24 Consecutive Hours, Continuous Positive Airway Pressure (ICD-10-PCS; principal; 2017-07-03)
DX: I11.0 Hypertensive heart disease with heart failure (principal); J96.01 Acute respiratory failure with hypoxia; I47.2 Ventricular tachycardia; E87.0 Hyperosmolality and hypernatremia; E87.3 Alkalosis; J90 Pleural effusion, not elsewhere classified; J44.1 Chronic obstructive pulmonary disease with (acute) exacerbation; I48.92 Unspecified atrial flutter; C61 Malignant neoplasm of prostate; I50.9 Heart failure, unspecified; Z87.891 Personal history of nicotine dependence; I48.91 Unspecified atrial fibrillation; Z79.01 Long term (current) use of anticoagulants; E11.9 Type 2 diabetes mellitus without complications; Z79.84 Long term (current) use of oral hypoglycemic drugs; E66.9 Obesity, unspecified; Z68.37 Body mass index [BMI] 37.0-37.9, adult; G47.33 Obstructive sleep apnea (adult) (pediatric); F51.9 Sleep disorder not due to a substance or known physiological condition, unspecified; Z95.5 Presence of coronary angioplasty implant and graft; E78.5 Hyperlipidemia, unspecified
CPT/HCPCS: 1NP; 36415; 71045; 71046; 78452; 82436; 87804; 87804-59; 93005; 93010; 93016; 93017; 93306; A9502; J0456; J1245; J1650; J1940; J2920; J3490; J7040; J7060; J7512